=== PATIENT | female | born 1945 | race Caucasian/White ===

== ENCOUNTER 2018-03-05 11:01 | Inpatient (IN) | payer MEDICARE, BC ==
--- NOTE | 2018-03-05 12:10 | ED ---
Adult Trauma - HPI Summary HPI Summary: Patient presents with fall last night while getting out of the bathtub. Reports she slipped and fell forward (simply mechanical - no dizziness, chest pain, weakness, etc). With nothing to grab, her fall was broken by her face and her left hand. She has swelling and bruising about the bridge of her nose and medial orbital regions with bruising. She had epistaxis last night she controlled with pressure. She denies change in vision or pain with ocular movement she is able to breathe through her nose. Denies pain with jaw depression however she is currently in a cervical collar she is not able to fully depress her mandible. She denies loss of consciousness, nausea, vomiting , photophobia, ringing in her ears, numbness tingling or weakness. She does report pain in her neck and a "cracking". She also reports some throat pain. She reports she has a history of degenerative disc disease in her cervical spine which is basically arty fused together. She does not take any anticoagulant medication however she does take Aleve routinely for her arthritis pain. Denies issues with bleeding or clotting. She does have some pain in her chest along her sternal area from her fall. Denies shortness of breath. - History of Current Complaint Chief Complaint: EDBackInjuryPain Stated Complaint: FELL - BACK PAIN Time Seen by Provider: 03/05/18 11:27 Hx Obtained From: Patient, Family/Senior Project Leader/Team Lead Pain Intensity: 8 - Allergy/Home Medications Allergies/Adverse Reactions: Allergies Allergy/AdvReac Type Severity Reaction Status Date / Time No Known Allergies Allergy Verified 03/05/18 11:04 Home Medications: Home Medications Atenolol TAB* [Tenormin TAB* 25 MG] 25 mg PO DAILY 03/05/18 [History Confirmed 03/05/18] Cholecalciferol TAB* [Vitamin D TAB*] 800 unit PO DAILY 03/05/18 [History Confirmed 03/05/18] Naproxen TAB* [Naprosyn 250 mg TAB*] 250 - 500 mg PO DAILY PRN 03/05/18 [ History Confirmed 03/05/18] PMH/Surg Hx/FS Hx/Imm Hx Previously Healthy: Yes Endocrine/Hematology History: Reports: 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 - steroids many times Cardiovascular History: Reports: Other Cardiovascular Problems/Disorders - tachycardia - takes beta marley Musculoskeletal History: Reports: Hx Arthritis - hypertrophic arthritis Sensory History: Reports: Hx Contacts or Glasses Opthamlomology History: Reports: Hx Contacts or Glasses Infectious Disease History: No Infectious Disease History: Denies: Traveled Outside the [place] in Last 30 Days - Social History Alcohol Use: Rare Substance Use Type: Reports: None Smoking Status (MU): Never Smoked Tobacco Physical Exam Vital Signs On Initial Exam: Initial Vitals Temp Pulse Resp BP Pulse Ox 97.8 F 59 16 118/72 95 03/05/18 11:04 03/05/18 11:04 03/05/18 11:04 03/05/18 11:04 03/05/18 11:04 Diagnostics - Vital Signs Vital Signs Temp Pulse Resp BP Pulse Ox 03/05/18 11:04 97.8 F 59 16 118/72 95 - Laboratory Result Diagrams: 03/05/18 12:20 03/05/18 12:20 Lab Statement: Any lab studies that have been ordered have been reviewed, and results considered in the medical decision making process. Adult Trauma Course/Dx - Course Course Of Treatment: Ct cervical spine reveals multiple cervical fractures. Non -displaced nasal fx. spoke w/ dimopolous - admit here for surgery. SPoke w/ ... to admit - Diagnoses Provider Diagnoses: Multiple fractures of cervical spine, closed, Nasal fracture, Fall from standing, Contusion of left wrist, Facial contusion Discharge - Sign-Out/Discharge Documenting (check all that apply): Discharge/Admit/Transfer - Discharge Plan Condition: Stable Disposition: ADMITTED TO [facility] - Billing Disposition and Condition Condition: STABLE [place] [place]
[2018-03-05 13:19] LABS: ABS Basophils 0 10^3/ul (0-0.2); ABS Eosinophils 0.1 10^3/ul (0-0.6); ABS Lymphocytes 1.7 10^3/ul (1.0-4.8); ABS Monocytes 0.8 10^3/ul (0-0.8); ABS Neutrophils 7.1 10^3/ul (1.5-7.7); ABS Nucleated RBC 0 10^3/ul; Eosinophil % 1.4 % (0-6); Hematocrit 46 % (35-47); Hemoglobin 15.8 g/dl (12.0-16.0); Mean Corpuscular HGB Conc 34 g/dl (31-36); Mean Corpuscular Hemoglobin 34 pg (27-31); Mean Corpuscular Volume 100 fL (80-97); Mean Platelet Volume 8.9 um3 (7.4-10.4); Nucleated Red Blood Cells % 0.1; Platelet Count 274 10^3/ul (150-450); Red Blood Count 4.62 10^6/ul (4.0-5.4); Red Cell Distribution Width 12 % (10.5-15); White Blood Count 9.8 10^3/ul (3.5-10.8)
[2018-03-05 13:29] LABS: INR 0.89 (0.77-1.02)
[2018-03-05 13:35] LABS: EGFR Non-African American 73.7 (>60)
[2018-03-05] MEDS ORDERED: Iohexol 300* (CONTRAST) 10 ML SDV IV ONE (13:39)
--- NOTE | 2018-03-05 14:20 | RAD ---
HISTORY: Fall, head trauma COMPARISONS: None TECHNIQUE: Multiple contiguous axial CT scans were obtained of the head without intravenous contrast. FINDINGS: HEMORRHAGE/INFARCT: There is no hemorrhage or acute infarct. MASSES/SHIFT: There is no mass or shift. EXTRA-AXIAL SPACES: There are no extra-axial fluid collections. SULCI AND VENTRICLES: The sulci and ventricles are normal in size and position for the patient's stated age. CEREBRUM: There are no focal parenchymal abnormalities. BRAINSTEM: There are no focal parenchymal abnormalities. CEREBELLUM: There are no focal parenchymal abnormalities. VESSELS: The vessels are grossly normal. PARANASAL SINUSES: The paranasal sinuses are clear. ORBITS: The orbits are unremarkable. BONES AND SOFT TISSUE: No bone or soft tissue abnormalities are noted. OTHER: None IMPRESSION: NO ACUTE INTRACRANIAL PATHOLOGY.
--- NOTE | 2018-03-05 14:25 | RAD ---
HISTORY: Fall, head injury, neck pain COMPARISONS: None TECHNIQUE: Multiple contiguous axial CT scans were obtained of the cervical spine without intravenous contrast, with coronal and sagittal multiplanar reformations. FINDINGS: BRAIN: The visualized brain is unremarkable CENTRAL CANAL: Evaluation of the central canal is limited on CT technique; however, there is no obvious canalicular mass or epidural hemorrhage. ALIGNMENT: The alignment is normal, without subluxation or dislocation. VERTEBRAL BODIES: There is anterior fusion across the cervical spine from C2 through T1 with continuous bridging anterolateral marginal osteophytes. There is a fracture through the anterior fusion mass and the superior vertebral body of C6 extending into the lateral masses bilaterally involving 3 columns. There is mild diastasis of the fracture line. There is no subluxation. There is diffuse osteopenia. JOINTS: There is diffuse facet osteoarthritis. There is no subluxation. MUSCULATURE: Unremarkable INTERVERTEBRAL DISCS: There is diffuse loss of intervertebral disc height. AXIAL IMAGES: C2-C3: There is no osseous neural foraminal narrowing or central canal stenosis. C3-C4: There is a lateral uncovertebral hypertrophy. There is moderate bilateral neural foraminal area. There is mild narrowing of the central canal. C4-C5: There is bilateral vertebral and facet hypertrophy. There is moderate bilateral neural foraminal narrowing. There is no significant central canal stenosis. C5-C6: There is mild bilateral neural foraminal narrowing. There is mild narrowing of the central canal. C6-C7: There is no osseous neural foraminal narrowing or central canal stenosis. C7-T1: There is marginal osteophyte formation at the neural foramina. There is severe bilateral neuroforaminal narrowing. There is no osseous central canal stenosis. SOFT TISSUES: The visualized soft tissues of the neck are unremarkable. The prevertebral fat stripe is preserved. OTHER: None. IMPRESSION: 1. THERE IS A 3 COLUMN FRACTURE THROUGH C6, WITHOUT SUBLUXATION. PRELIMINARY FINDINGS WERE DISCUSSED WITH SHERRELL GREWAL IN THE EMERGENCY DEPARTMENT AT APPROXIMATELY 2:20 PM ON MARCH 05, 2018. 2. OSTEOPENIA. 3. DEGENERATIVE DISC DISEASE AND OSTEOARTHRITIS. 4. THERE IS CONTINUOUS FUSION OF THE CERVICAL SPINE FROM MULTIPLE BRIDGING ANTEROLATERAL MARGINAL OSTEOPHYTES, SUGGESTIVE OF DIFFUSE IDIOPATHIC SKELETAL HYPEROSTOSIS.
--- NOTE | 2018-03-05 14:37 | RAD ---
INDICATION: Fall. Sternal pain. COMPARISON: None TECHNIQUE: Axial source images were obtained from the thoracic inlet to the hemidiaphragms. Coronal and sagittal reconstructed images were acquired. 80 mL Omnipaque 300 The visualized neck to include the thyroid appear normal. Chest wall: There are no acute abnormalities of the bony thorax or chest wall. The patient has a known C6 fracture identified on the concurrent CT cervical spine. There is no supraclavicular, infraclavicular, or axillary lymphadenopathy. Lungs : There are multiple right-sided pulmonary parenchymal nodules measuring up to 5 mm. The largest of these is in the right middle lobe and as the 5 mm nodule which may containing a developing central calcification. There for 5 additional nodules which are slightly smaller in size. A small pneumatocele in the right lung base. There is minor gravity dependent atelectasis. The pulmonary interstitium appears normal. There are no endobronchial lesions. Cardiomediastinal structures: The heart is normal in size. There is no pericardial effusion. There is no evidence of aortic aneurysm or dissection. The pulmonary vessels appear normal. There is no mediastinal or hilar adenopathy. The esophagus appears normal. Pleura : There are no pleural-based masses or effusions. Other: There are no acute or significant CT findings of the visualized upper abdomen. IMPRESSION: LOW SUSPICION RIGHT-SIDED PULMONARY PARENCHYMAL NODULES. SUGGEST FOLLOW-UP IN 6 MONTHS TO REASSESS. NO ACUTE CT CHEST FINDINGS.
--- NOTE | 2018-03-05 14:37 | RAD ---
HISTORY: Fall, cervical extension injury, thoracic pain COMPARISONS: CT of the cervical spine dated March 05, 2018 TECHNIQUE: Multiple contiguous axial CT scans were obtained of the thoracic spine without intravenous contrast, with coronal and sagittal multiplanar reformations. FINDINGS: SPINAL CANAL: Evaluation of the central canal is limited on CT technique; however, there is no obvious canalicular mass or epidural hemorrhage. ALIGNMENT: The alignment is normal. VERTEBRAL BODIES: There is diffuse osteopenia. There is continuous flowing anterolateral marginal osteophyte formation along the cervical and thoracic spine. As noted on the CT of the cervical spine, there is a fracture of C6. Elsewhere, there is no displaced fracture. JOINTS: There is osteoarthritis of the costovertebral articulations. There is no subluxation MUSCULATURE: Unremarkable INTERVERTEBRAL DISCS: There is diffuse loss of intervertebral disc height throughout the spine. AXIAL IMAGES: Axial images, there is moderate narrowing of the central canal at T10-T11. SOFT TISSUES: The visualized soft tissues of the chest and abdomen are unremarkable. OTHER: None IMPRESSION: 1. NOTED ON THE CT OF THE CERVICAL SPINE, THERE IS A FRACTURE OF C6. 2. THERE IS CONTINUOUS, FLOWING, BRIDGING ANTEROLATERAL MARGINAL OSTEOPHYTES, SUGGESTIVE DIFFUSE IDIOPATHIC SKELETAL HYPEROSTOSIS. 3. THERE IS MODERATE NARROWING OF THE CENTRAL CANAL AT T10-T11.
--- NOTE | 2018-03-05 14:52 | RAD ---
INDICATION: Fall. Left wrist pain COMPARISON: None TECHNIQUE: AP, lateral, and oblique views were obtained. FINDINGS: There are no acute bony findings. There is advanced osteoarthritis about the first and second carpal carpal articulations. No other carpal abnormalities are seen. The radiocarpal joint is intact. Soft tissues are normal. IMPRESSION: ADVANCED OSTEOARTHRITIS FIRST AND SECOND CARPOMETACARPAL ARTICULATIONS. NO ACUTE FINDINGS.
--- NOTE | 2018-03-05 14:55 | RAD ---
Indication: Fall, head injury. CT of the facial bones was obtained in the axial plane. Coronal and sagittal reconstructed images were obtained. The frontal sinuses are clear without evidence of air-fluid levels. Soft tissue swelling is noted overlying the right frontal area. The orbits are intact without evidence of fracture. The skull base demonstrates no fracture. Maxillary sinuses, ethmoid air cells and sphenoid sinuses are clear without abnormal fluid. The heart palate including the pterygoid plates are intact. The mandible demonstrates no fracture. Mastoid air cells are well aerated. There is a nondisplaced fracture through the right nasal arch which is mildly comminuted. IMPRESSION: Mildly comminuted fracture through the right nasal arch.
--- NOTE | 2018-03-05 15:30 | RAD ---
HISTORY: Back pain, fall COMPARISONS: None TECHNIQUE: Multiple contiguous axial CT scans were obtained of the lumbar spine without intravenous contrast, with coronal and sagittal multiplanar reformations. FINDINGS: SPINAL CANAL: Evaluation of the central canal is limited on CT technique; however, there is no obvious canalicular mass or epidural hemorrhage. ALIGNMENT: There is mild levoscoliotic curvature of the spine. VERTEBRAL BODIES: There is diffuse osteopenia. Is multilevel anterolateral marginal osteophyte formation with bridging marginal osteophytes along the lower thoracic and upper lumbar spine. There is no displaced fracture. JOINTS: There is diffuse facet osteoarthritis. MUSCULATURE: Unremarkable INTERVERTEBRAL DISCS: There is diffuse loss of intervertebral disc height throughout the spine. AXIAL IMAGES: T11-T12: There is bilateral facet hypertrophy. There is moderate narrowing of the central canal. T12-L1: There is bilateral facet hypertrophy. There is moderate bilateral neuroforaminal narrowing. There is mild narrowing of the central canal. L1-L2: There is bilateral facet hypertrophy. There is moderate bilateral neural foraminal narrowing. There is mild narrowing of the central canal. L2-L3: There is bilateral facet hypertrophy. There is no significant neural foraminal narrowing or central canal stenosis. L3-L4: There is broad-based disc bulge with ligamentous and facet hypertrophy. There is marginal osteophyte formation at the neural foramina bilaterally. There is severe right and moderate left neural foraminal narrowing. There is severe narrowing of the central canal. L4-L5: There is a broad-based disc bulge with ligamentous and facet hypertrophy. There is marginal osteophyte formation at the neural foramina bilaterally. There is severe bilateral neural foraminal narrowing. There is moderate to severe narrowing of the central canal. L5-S1: There is bilateral facet hypertrophy. There is marginal osteophyte formation at the neural foramina bilaterally. There is severe bilateral neural foraminal narrowing. There is no osseous central canal stenosis. SOFT TISSUES: There is diverticulosis of the colon. There is atherosclerosis of the aorta. OTHER: None IMPRESSION: 1. OSTEOPENIA. 2. DEGENERATIVE DISC DISEASE AND OSTEOARTHRITIS. 3. THERE IS SEVERE NARROWING OF THE CENTRAL CANAL AT L3-L4 WITH MODERATE NARROWING L4-L5 AND T11-T12, AND MILD NARROWING AT T12-L1 AND L1-L2. 4. THERE IS MULTILEVEL NEURAL FORAMINAL NARROWING DESCRIBED ABOVE. 5. NO ACUTE OSSEOUS INJURY TO THE LUMBAR SPINE.
[2018-03-05] MEDS ORDERED: Acetaminophen TAB* 325 MG PO PRN (16:51)
[2018-03-05 17:20] LABS: Urine Appearance Clear; Urine Blood Negative (Negative); Urine Color Yellow; Urine Ketones Negative (Negative); Urine Protein Negative (Negative); Urine Specific Gravity > 1.060 (1.010-1.030); Urine Urobilinogen Negative (Negative)
[2018-03-05] MEDS ORDERED: oxyCODONE/Acetamin 5/325 MG* TAB PO PRN (21:31)
[2018-03-05] MEDS: Morphine VIAL* 4 MG/ML VIAL (1 ml vial) IV PRN (22:30)
--- NOTE | 2018-03-06 01:07 | HP ---
CC: Dr. Mariann Clark; Dr. Allen * HISTORY AND PHYSICAL: DATE OF ADMISSION: 03/05/18 PRIMARY CARE PROVIDER: Dr. Mariann Clark. ATTENDING PHYSICIAN: Dr. Kevin Olivares * (dictated by Preeti Reyes NP) . CHIEF COMPLAINT: Fall with neck pain and trauma to nose. HISTORY OF PRESENT ILLNESS: Ms. Johnson is a 72-year-old female with past medical history significant for history of pericarditis, diffuse idiopathic skeletal hyperostosis (DISH), and an unknown autoimmune disorder, who presented to the emergency room after falling while getting out of her bathtub last night. The patient states she has been in her usual state of health. She denies any fevers, chills, chest pain, shortness of breath, nausea, vomiting, diarrhea; urinary symptoms such as dysuria, urgency or frequency. The patient states that she has a lot of problems with her back and neck due to her DISH disease. The patient states that she slipped and fell last night, she denies any lightheadedness or dizziness. She reported discomfort in her neck and feeling as though her neck was "crunching when moving". She denies any loss of bowel or bladder. She denies any numbness, tingling, or muscle weakness. She has chronic pain in her back due to DISH disease. The patient also reports striking her face when she fell. She had significant epistaxis last night that resolved. She denies any loss of consciousness. She also reports a discomfort in her throat, but is able to swallow and nasal congestion. Due to her fall and the discomfort in her neck, she presented to the emergency room for further evaluation. While in the emergency room, the patient had a C-spine CT showing a C3-C6 fracture. The patient has an incidental finding of a right-sided lung nodule. She also had a maxillofacial CT showing a mild comminuted fracture of the right nasal arch. She also injured her left wrist in her fall, she has bruising to that area. She had an x-ray showing no fracture of the left wrist. She had a brain CT showing no acute intracranial pathology. She had an EKG without significant findings. She had labs that were unremarkable. The hospitalists were asked to evaluate the patient for admission. PAST MEDICAL HISTORY: 1. Pericarditis. 2. Diffuse idiopathic skeletal hyperostosis (DISH). 3. Unknown autoimmune disorder. PAST SURGICAL HISTORY: 1. Status post exploratory laparotomy. 2. Status post lysis of adhesions. 3. Status post knee surgery. 3. Status post tonsillectomy. HOME MEDICATIONS: Include: 1. Naproxen 250 to 500 mg oral daily as needed for pain. 2. Vitamin D 800 units oral daily. 3. Atenolol 25 mg oral daily. ALLERGIES: No known drug allergies. FAMILY HISTORY: The patient denies any family history of coronary artery disease, diabetes. Her father had a history of prostate cancer. SOCIAL HISTORY: The patient denies tobacco or recreational drug use. She rarely drinks alcohol. The patient's , Alcides Johnson, will be her surrogate decision maker in the event she is unable to make decisions for herself. REVIEW OF SYSTEMS: I performed a 14-point review of systems. All the pertinent positives and negatives are mentioned in the history of present illness. The remaining review of systems are negative. PHYSICAL EXAMINATION GENERAL APPEARANCE: The patient is alert, pleasant and appears to be in no acute distress. VITAL SIGNS: Temperature 97.8, heart rate 59, respiratory rate 16, O2 sat 95% on room air, blood pressure 118/72. HEENT: Normocephalic, atraumatic. Pupils are equal and reactive to light. Extraocular movements are intact. Swelling at the upper bridge of the nose. RESPIRATORY: There is no accessory muscle use. The lungs are clear to auscultation bilaterally. CARDIOVASCULAR: Regular rate and rhythm. S1 and S2 present. There are no murmurs, rubs, or gallops heard. ABDOMEN: Soft, nontender, and nondistended. There are bowel sounds present x4. EXTREMITIES: There is no lower extremity edema. DP and PT pulses are 2+ and symmetric. There is tenderness to palpation of the left proximal thumb and wrist. MUSCULOSKELETAL: There is no clubbing or cyanosis noted. The patient exhibits good strength in all extremities. NEUROLOGICAL: The patient is alert and oriented x4. Cranial nerves II through XII are grossly intact. PSYCHOLOGICAL: The patient is calm and cooperative. SKIN: The patient has ecchymosis to both eyes and the bridge of her nose. Additionally, she has ecchymosis to her left proximal thumb and at her wrist. DIAGNOSTIC STUDIES/LABORATORY DATA: Sodium 138, potassium 4.3, chloride 102, CO2 28, BUN 14, creatinine 0.77, glucose 154. White blood cell count 9.8, hemoglobin 15.8, hematocrit 46, platelet count 274. EKG shows a sinus bradycardia, rate of 52. There are no acute signs of ischemia and no previous EKGs for comparison. Brain CT from today. Radiologist's impression: No acute intracranial pathology. Cervical spine CT from today. Radiologist's impression: There is a 3-column fracture through C6 without subluxation. Osteopenia. Degenerative disk disease and osteoarthritis. There is continuous fusion of the cervical spine from multiple bridging anterolateral marginal osteophytes, suggestive of diffuse idiopathic skeletal hyperostosis. Chest CT from today. Radiologist's impression: Low suspicion right-sided pulmonary parenchymal nodules. Suggest followup in 6 months to reassess. No acute CT chest findings. Thoracic spine CT from today. Radiologist's impression: As noted on the CT of the cervical spine, there is a fracture of C6. There are continuous flowing bridging anterolateral marginal osteophytes, suggest diffuse idiopathic skeletal hyperostosis. There is moderate narrowing of the central canal at T10- T11. Maxillofacial CT from today. Radiologist's impression: Mildly comminuted fracture through the right nasal arch. Left wrist x-ray from today. Radiologist's impression: Advanced osteoarthritic first and second carpometacarpal articulations. No acute findings. Lumbar spine CT from today. Radiologist's impression: Osteopenia. Degenerative disk disease and osteoarthritis. There is severe narrowing of the central canal at L3-L4 with moderate narrowing at L4-L5 and T11-T12 and mild narrowing at T12-L1 and L1-L2. There is multilevel neural foraminal narrowing as described above. No acute osseous injury of the lumbar spine. IMPRESSION: Ms. Johnson is a 72-year-old female with past medical history significant for diffuse idiopathic skeletal hyperostosis, an unknown autoimmune disorder, and pericarditis, who presented to the emergency room after falling last evening and was found to have a C3-C6 cervical spine fracture. She will be admitted as an inpatient. ASSESSMENT/PLAN: 1. Cervical fractures at C3-C6. The patient will be seen in consultation by Dr. Allen with Neurosurgery. She will have her head of bed no higher than 20 degrees and be placed on bedrest with spinal precautions. There is concern that the patient could possibly have an esophageal trauma from her injury. We will have her be n.p.o. until we can complete a radiological swallow eval. Once the patient can eat and she is able to eat until Saturday, she will be n.p.o. after midnight on Saturday for surgery on Saturday. The patient will have neuro checks. She will be provided with pain control. According to the RCRI, the patient has 0 points in placing her to class 1 risk and a 0.4% risk of a major cardiac event. She has a MET score greater than 4. At this time, I feel she does not need further cardiac workup and is medically optimized to proceed to surgery when Neurosurgery is ready. 2. Incidental finding of pulmonary nodules. The patient needs to have a followup chest CT in 6 months. 3. Diffuse idiopathic skeletal hyperostosis. The patient will have supportive care. 4. History of pericarditis. The patient will be continued on her home atenolol as she states that she has had difficulties with her heart rate since her history of pericarditis. 5. Fluids, electrolytes and nutrition. The patient will be n.p.o. She will have LR at 125 mL an hour. 6. Code status. Full code. 7. DVT prophylaxis. The patient is at high risk and will have SCDs. We will hold on subcu heparin leading up to surgery. 8. Disposition. Inpatient. TIME SPENT: Time for this admission was approximately 60 minutes, greater than half of that was spent with the patient and discussing medications, past medical history, the events leading up to her arrival today, and performing a physical examination. Case has been reviewed with the attending, Dr. Olivares, who agrees with the plan of care. Reviewed by DEL BIRCH 03/07/18 [id number]/[facility] #: [id number] ROSELINE
--- NOTE | 2018-03-06 03:50 | CONS ---
CONSULTATION NOTE: DATE OF CONSULT: 03/05/18 HISTORY OF PRESENT ILLNESS: The patient is a very pleasant 72-year-old female with history of arrhythmias, who had fallen last night while she was getting out of the bathtub. The patient reported that she slipped and fell forward and fell on her face and her left hand. The patient came to the emergency room because of neck pain. She denies loss of consciousness. I was requested to see the patient by ED physician regarding CT scan finding consistent with C6 fracture involving the superior vertebral body C6 and bilateral lateral masses. The patient has history and imaging findings consistent with DISH. The patient reports that she has no weakness, numbness, or tingling of extremities. She denies any urinary or GI incontinence. The patient was able to ambulate after the fall. 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 She is , lives with her who accompanied her at this visit. She was also diagnosed with major fracture. She reports that prior to this fall, she was diagnosed with ankylosed spine and had significant limitations in her neck mobility. She could hardly move her neck and she had to turn from side to side with her body. PAST MEDICAL HISTORY: 1. Autoimmune disease with steroids several times. 2. Tachycardia, on beta-marley. 3. Arthritis. PAST SURGICAL HISTORY: The patient has multiple procedures in the abdomen for adhesions as well as D and Cs for miscarriage. MEDICATIONS: The patient is on: 1. Tylenol. 2. Cholecalciferol. 3. Naproxen. ALLERGIES: No known drug allergies. SOCIAL HISTORY: Tobacco, negative. Alcohol, occasionally. Recreational drug use, negative. PHYSICAL EXAM: The patient is not in acute distress. She is on a [place] J collar. She is awake, alert, oriented x3. Her pupils are equal and reactive. Cranial nerves II through XII are grossly intact. Motor 4 to 5/5 in all extremities. Sensory is grossly intact to light touch. Deep tendon reflexes +1 bilaterally. No clonus. No Babinski. Teran's negative. Straight leg test negative in the seated position. The patient has no tenderness to palpation of thoracic or lumbar spine. No step-offs. DIAGNOSTIC STUDIES/LAB DATA: The patient had a CT scan of the brain that did not reveal any evidence of acute intracranial abnormality. The patient had a CT scan of the maxillofacial with right nasal arch fracture. The patient had a CT scan of the cervical spine revealing a C6 superior vertebral body fracture extending to bilateral lateral masses. The patient had a CT scan of the thoracic spine that revealed ankylosed spine with DISH changes with multiple stenosis and multiple areas of calcification of ligamentum flavum. The patient had a CT scan of the L spine that revealed multilevel degenerative disk disease but no evidence of fracture. The patient had an MRI of the cervical spine that revealed again increased STIR signal changes at C6 at the area of an old fracture, possibly stented at the interspinous ligament at that level. She has multiple areas of stenosis. ASSESSMENT: The patient is a very pleasant 72-year-old female with recent fall and CT scan and MRI findings consistent with C6 fracture. PLAN: The patient at this point has unstable cervical spine fracture. She is doing neurologically very well, but based on her imaging, and her history of DISH I think that surgical intervention for stabilization is the most appropriate treatment for her. We discussed nonoperative and operative treatment options as well as risks and benefits of its approach. The patient understands and would like to proceed with surgical intervention. We discussed about risks and benefits, all expectations, in addition possible complications of the procedure. Complications include but not limited to bleeding, infection , risk of injury to adjacent structures, coma, paralysis, , need for additional procedure, anesthesia risks, stroke, blindness, cancer, instability, hardware failure. The patient understands as well as her and they would like to proceed with surgical intervention. She also understands that her condition may not improve and in fact could get worse after the surgery and that she may need to have additional procedure in the future and operative plan may be modified according to intraoperative findings and condition. They also understand tat she may require ICU care postoperatively and that there is a very high one month and one year mortality rate in patient with ankylosed spine and spine fracture. At this point, the patient will be at bedrest with [place] J collar with strict spine precautions with head of the bed approximately 20 to 30 degrees in her natural comfortable position. The patient reports that she was not able to lie flat prior to this fall because of her stiff spine. Also, the patient has some complaints of sore throat. Because of the possibility of esophageal injury the patient will be n.p.o. and consider further imaging if needed after reevaluation of her images with Radiology. Greatly appreciate care. Will follow patient closely. Again, thank you very much for allowing us to participate in the care of this patient. Please do not hesitate to contact our office in case you have any further questions or concerns regarding the care of this patient. [id number]/[facility] #: [id number] ROSELINE
--- NOTE | 2018-03-06 07:43 | RAD ---
HISTORY: Neck pain, fall, cervical spine fracture COMPARISONS: CT dated March 05, 2018 TECHNIQUE: The following sequences were obtained of the cervical spine: Sagittal T1- and T2-weighted images, sagittal STIR images, axial T2 and gradient echo images. FINDINGS: BRAIN AND SPINAL CORD: The visualized spinal cord is normal in caliber, position, and signal intensity. The visualized portion of the brain is unremarkable. The cerebellar tonsils are normal in position. ALIGNMENT: The alignment is normal. VERTEBRAL BODIES: There is linear low T1 signal with high T2/STIR signal paralleling the superior endplate of C6 along the fracture line noted on the earlier CT examination. There is distraction of the fracture line is no longer evident. There is no subluxation. There is a hemangioma of T1. Again noted is continuous flowing anterolateral bridging marginal osteophyte formation along the cervical spine. JOINTS: There is diffuse uncovertebral and facet osteoarthritis. MUSCULATURE: Unremarkable INTERVERTEBRAL DISCS: There is diffuse loss of intervertebral disc height and T2 signal throughout the spine. AXIAL IMAGES: C2-C3: There is no disc herniation, spinal stenosis, or neuroforaminal narrowing. C3-C4: There is bilateral uncovertebral facet hypertrophy. There is moderate bilateral neural foraminal narrowing. There is no significant central canal stenosis. C4-C5: There is a broad-based disc osteophyte complex. There is mild bilateral neuroforaminal narrowing. There is no significant central canal stenosis. C5-C6: There is a mild broad-based disc osteophyte complex with bilateral uncovertebral hypertrophy. There is mild bilateral neural foraminal narrowing. There is mild narrowing of the central canal. C6-C7: There is no disc herniation, spinal stenosis, or neuroforaminal narrowing. C7-T1: There is a mild broad-based disc osteophyte complex, greater on the left than on the right. There is bilateral uncovertebral and facet hypertrophy. There is severe bilateral neural foraminal narrowing. There is mild narrowing of the central canal. SOFT TISSUES: There is mild edema along the interspinous ligament at C5-C6. There is disruption of the posterior longitudinal ligament at C5-C6. The ligamentum flavum is intact. There is mild prevertebral soft tissue edema at C5-C6, without extension to the posterior pharyngeal mucosa or the esophagus. OTHER: None. IMPRESSION: 1. AGAIN NOTED IS A FRACTURE PARALLELING THE SUPERIOR ENDPLATE OF C6. THE DISTRACTION NOTED ON THE PREVIOUS CT EXAMINATION HAS REDUCED. THERE IS DISRUPTION OF THE POSTERIOR LONGITUDINAL LIGAMENT AT THIS LEVEL. THE LIGAMENTUM FLAVUM IS INTACT. THERE IS MILD EDEMA OF THE INTERSPINOUS LIGAMENT AT THIS LEVEL. 2. THERE IS NO CORD EDEMA. THERE ARE NO EPIDURAL FLUID COLLECTIONS. 3. AGAIN NOTED IS FLOWING MULTILEVEL BRIDGING MARGINAL OSTEOPHYTE FORMATION. 4. DEGENERATIVE DISC DISEASE AND OSTEOARTHRITIS DESCRIBED ABOVE.
--- NOTE | 2018-03-06 08:21 | PN ---
Subjective Date of Service: 03/06/18 Interval History: Ms. Johnson reports sinus fullness and some pain with swallowing that she thinks may in part be related to having a dry throat. She also reports some hip pain related to being required to lay flat in bed. She denies other complaint including chest pain, SOB, nausea, or abdominal pain. Objective Active Medications: Acetaminophen (Tylenol Tab*) 650 mg PO Q4H PRN Atenolol (Tenormin Tab*) 25 mg PO DAILY DEEJAY Cholecalciferol (Vitamin D Tab*) 800 unit PO DAILY [facility] Lactated Ringer's (Lactated Ringers 1000 Ml Bag*) 1,000 mls @ 125 mls/hr IV PER RATE DEEJAY Morphine Sulfate (Morphine Vial*) 2 mg IV Q4H PRN Oxycodone/Acetaminophen (Percocet 5/325 Tab*) 1 tab PO Q4H PRN Vital Signs: Temp Pulse Resp BP Pulse Ox 98.3 F 62 16 149/61 96 03/06/18 04:02 03/06/18 04:02 03/06/18 04:02 03/06/18 04:02 03/06/18 04:02 Oxygen Devices in Use Now: None Appearance: Female lying in bed in NAD Eyes: No Scleral Icterus Ears/Nose/Mouth/Throat: Mucous Membranes Moist Neck: Trachea Midline Respiratory: Symmetrical Chest Expansion and Respiratory Effort, Clear to Auscultation Cardiovascular: NL Sounds; No Murmurs; No JVD, No Edema Abdominal: NL Sounds; No Tenderness; No Distention Lymphatic: No Cervical Adenopathy Extremities: No Edema Skin: - - Ecchymosis and swelling about both eyes and nose Neurological: Alert and Oriented x 3, NL Muscle Strength and Tone Result Diagrams: 03/05/18 12:20 03/05/18 12:20 Assess/Plan/Problems-Billing Assessment: Ms. Johnson is a 72 yo female with PMH of diffuse idiopathic skeletal hyperostosis and unspecificied autoimmune disorder who was admitted on03/05/18 with C6 cervical fracture after mechanical fall with plans for operative intervention on 03/07/18. - Patient Problems (1) Cervical spine fracture Comment: - C6 fracture with plan for operative intervention with Dr. Garduno on . - Bedrest. Neuro checks. - Pain meds prn. (2) Dysphagia Comment: - Report of some difficulty swallowing. - Plan for swallow eval with speech therapy before resuming diet given trauma. (3) Tachycardia Comment: - Patient reports problems with her heart rate since a bout of pericarditis. - Continue home atenolol. (4) Pulmonary nodule Comment: - Follow up outpatient. (5) DVT prophylaxis Comment: - SCDs. (6) Full code status Comment: Status and Disposition: Inpatient. Anticipate discharge to home when medically stable.
[2018-03-06] MEDS: Atenolol TAB* 25 MG PO SCH (08:36)
[2018-03-06] MEDS: Cholecalciferol TAB* 400 UNIT PO SCH (08:36)
[2018-03-06] MEDS ORDERED: traMADol TAB* 50 MG PO PRN (08:44)
[2018-03-06] MEDS ORDERED: Perflutren Lipid Microsphere* 3 ML VIAL ONE (14:59)
--- NOTE | 2018-03-06 16:20 | ECHO ---
Patient: JOSH DESIR [facility] Rec#: [id number] : 1945 Date: 03/06/2018 Age: 72y Height: 165.1 cm / 65.0 in Weight: 92.99 kg / 204.9 lbs Sex: F BSA: 2 Room#: 338 Admit Date#: 03/05/2018 Type: Inpatient Referring: Preeti Mohamud NP Reading: Nick Keyes MD Fitness Consultant: Preeti Alvarez RDCS CC: Mariann Clark MD Transthoracic Echocardiogram Indication: HTN, history of pericarditis. BP: 153/68 HR: 62 Rhythm: NSR Findings History: Pericarditis 1989, difuse idiopathic skeletal hyperstosis (DISH). Unable to obtain suprasternal notch imaging due to presence of C-spine collar. Technical Comments: The study is technically difficult. The study is technically limited due to patient body habitus. Completed at 1540. Left Ventricle: The left ventricular chamber size is normal. Mild concentric left ventricular hypertrophy is observed. Global left ventricular wall motion and contractility are within normal limits. There is normal left ventricular systolic function. The estimated ejection fraction is 55-60%. Abnormal left ventricular diastolic filling is observed, consistent with impaired relaxation. Left Atrium: The left atrial chamber size is normal. Right Ventricle: Moderator Band present. The right ventricular cavity size is normal. The right ventricular global systolic function is normal. Right Atrium: The right atrium is moderately dilated. Aortic Valve: The aortic valve is trileaflet. There is no evidence of aortic valve thickening. There is no evidence of aortic regurgitation. There is no evidence of aortic stenosis. Mitral Valve: The mitral valve leaflets are mildly thickened. There is a trace of mitral regurgitation. Tricuspid Valve: The tricuspid valve leaflets are normal. There is trace tricuspid regurgitation. The right ventricular systolic pressure is estimated at 24 mmHg. No pulmonary hypertension is noted. Pulmonic Valve: The pulmonic valve appears normal. There is no evidence of pulmonic regurgitation. There is no pulmonic stenosis. Pericardium: There is no significant pericardial effusion. A pericardial fat pad is visualized. Aorta: There is no dilatation of the ascending aorta. The aortic arch is not well visualized. The aortic root is normal in size. Pulmonary Artery: The main pulmonary artery is not well visualized. Venous: The venous system is not well visualized. The inferior vena cava appears normal in size. There is an approximate 50% respiratory change in the inferior vena cava dimension. Contrast: Definity was used to optimize study. 3 mL of diluted Definity was utilized. Intravenous contrast was used to enhance endocardial border definition. Conclusions There is normal left ventricular systolic function. The estimated ejection fraction is 55-60%. Global left ventricular wall motion and contractility are within normal limits. The left ventricular chamber size is normal. Mild concentric left ventricular hypertrophy is observed. Abnormal left ventricular diastolic filling is observed, consistent with impaired relaxation. The right atrium is moderately dilated. Functionally benign heart valves. There is no prior echocardiogram available to compare with at this time. Measurements Name Value Normal Range RVIDd (AP) 2D 2.5 cm (0.9 - 2.6) RAd ISD 4CH 5.6 cm (3.4 - 4.9) RA (A4C)W 3.9 cm (2.9 - 4.6) IVSd (2D) 1.2 cm (0.6 - 1) LVPWd (2D) 1.2 cm (0.6 - 1) LVIDd (2D) 4.2 cm (3.6 - 5.4) LVIDs (2D) 3.1 cm - LV FS (2D) 26 % (25 - 45) Aortic Annulus 1.9 cm (1.4 - 2.6) Ao root diameter (2D) 3 cm (2.1 - 3.5) Ascending Ao 2.8 cm (2.1 - 3.4) LA dimension (AP) 2D 3.6 cm (2.3 - 3.8) LAd ISD 4CH 4.9 cm (2.9 - 5.3) LA ISD 4CH W 4.3 cm (2.5 - 4.5) Name Value Normal Range LA ESV SP 4CH (A/L) 51 ml - LA ESV SP 2CH (A/L) 71 ml - LA ESV BP (A/L) 69 ml - LA ESV BP (A/L) index 34 ml/m2 - LA ESV SP 4CH (MOD) 39 ml - LA ESV SP 2CH (MOD) 64 ml - Name Value Normal Range MV E-wave Vmax 0.86 m/sec - MV deceleration time 208.7 msec - MV A-wave Vmax 1.15 m/sec - MV E:A ratio 0.75 ratio - LV septal e' Vmax 0.07 m/sec - LV lateral e' Vmax 0.07 m/sec - LV E:e' septal ratio 12.29 ratio - LV E:e' lateral ratio 12.29 ratio - Name Value Normal Range AV Vmax 1.4 m/sec - AV VTI 30.8 cm - AV peak gradient 8.39 mmHg - AV mean gradient 4.82 mmHg - LVOT Vmax 0.99 m/sec - LVOT VTI 21.35 cm - LVOT peak gradient 3.93 mmHg - LVOT mean gradient 1.8 mmHg - Name Value Normal Range TR Vmax 2.3 m/sec - TR peak gradient 21 mmHg - RAP 3 mmHg - RVSP 24 mmHg - IVC diameter 1.9 cm - Name Value Normal Range PV Vmax 1.2 m/sec - PV peak gradient 5.37 mmHg -
[2018-03-06] MEDS: Morphine VIAL* 4 MG/ML VIAL (1 ml vial) IV PRN ×2 (17:52→22:04)
--- NOTE | 2018-03-07 00:02 | PN ---
Progress Note - Progress Note Date of Service: 03/06/18 SOAP: Subjective: []Patient seen earlier today No events ON. On MJ collar. NPO. Swallowing, throat pain improved. Objective: []AAOx3 SUZIE, CN II-XII grossly intact Motor 4-5/5 all extremities Sensory grossly intact to light touch. Assessment: []72 yof C6 fracture, unstable cervical fracture, DISH, Nasal fracture. Plan: []Monitor VS, Neurochecks Maintain MJ collar OR in am if no medical condraindications. NPO Discussed in extend with patient and her . Appreciate IM care. Kim Allen MD
[2018-03-07] MEDS ORDERED: LORazepam INJ* 2 MG/ML 1 ML VIAL IV ONE (00:03)
[2018-03-07] MEDS ORDERED: LORazepam INJ* 2 MG/ML 1 ML VIAL ONE (00:07)
[2018-03-07] MEDS: Morphine VIAL* 4 MG/ML VIAL (1 ml vial) IV PRN ×2 (01:40→05:27)
[2018-03-07] MEDS ORDERED: Famotidine IV* 10 MG/ML 2 ML (20 mg) IV ONE (06:00)
[2018-03-07] MEDS: Atenolol TAB* 25 MG PO SCH (08:11)
[2018-03-07] MEDS ORDERED: Bacitracin IV* 50,000 UNITS INJ ONE ×3 (08:11→15:44)
[2018-03-07] MEDS ORDERED: Thrombin 5,000 UNITS* 1 APPLIC KIT - topical use - TOPICAL ONE (08:11)
[2018-03-07] MEDS ORDERED: Lidocaine 1% MPF wEPI 200,000* 30 ML SDV ONE (08:11)
[2018-03-07] MEDS ORDERED: fentaNYL* 50 MCG/ML 2 ML VIAL (100 MCG VIAL) ONE ×5 (08:49→16:08)
[2018-03-07] MEDS ORDERED: Midazolam* 1 MG/ML 10 ML VIAL (10 MG) ONE (08:49)
[2018-03-07] MEDS ORDERED: Rocuronium* 10 MG/ML VIAL ONE (08:51)
[2018-03-07] MEDS ORDERED: Lidocaine 4% TOPICAL* 50 ML TOP.SOLN ONE (08:54)
[2018-03-07] MEDS ORDERED: ceFAZolin 2 GM PREMIX (*) 2 GM/50 ML BAG IVPB ONE ×2 (09:08→12:22)
[2018-03-07] MEDS: Cholecalciferol TAB* 400 UNIT PO SCH (10:13)
[2018-03-07] MEDS ORDERED: Propofol* 10 MG/ML 20 ML BTL IV PUSH ONE ×5 (12:52→15:24)
[2018-03-07] MEDS ORDERED: Succinylcholine* 20 MG/ML 10 ML VIAL ONE (12:53)
[2018-03-07] MEDS ORDERED: DiMENhydriNATE IV* 50 MG/ML VIAL ONE (12:53)
[2018-03-07] MEDS ORDERED: Dexamethasone IV* 4 MG/ML 1 ML (4 MG) ONE (12:53)
[2018-03-07] MEDS ORDERED: Lidocaine 2% PF * 5 ML VIAL ONE (12:53)
[2018-03-07] MEDS ORDERED: Glycopyrrolate IV* 0.2 MG/ML 1 ML VIAL ONE (13:19)
[2018-03-07] MEDS ORDERED: EPHEDrine (Pressors)* 50 MG/ML VIAL ONE (13:19)
[2018-03-07] MEDS ORDERED: Phenylephrine INJ* 10 MG/ML 1 ML VIAL (10 MG) ONE (13:19)
[2018-03-07] MEDS ORDERED: Ondansetron INJ* 2 MG/ML VIAL IV ONE (16:02)
[2018-03-07] MEDS ORDERED: HYDROmorphone INJ* 1 MG/ML CARPUJECT SYRINGE ONE (16:04)
--- NOTE | 2018-03-07 16:18 | RAD ---
INDICATION: C2-T2 fusion COMPARISON: None FINDINGS: 11 minutes and 37 seconds of fluoroscopy were provided for the neurosurgical department. Fluoroscopic spot imaging of the neck were obtained for operative control . CPT II Codes: G9500 (fluoro time doc)
--- NOTE | 2018-03-07 16:22 | RAD ---
INDICATION: C2-T2 posterior fusion. C-arm images COMPARISON: MRI cervical spine March 05, 2018 FINDINGS: 86.8 seconds of fluoroscopy were provided for the neurosurgical department. Fluoroscopic spot imaging of the cervical spine were obtained for operative control. Final images demonstrate posterior cervical fusion which reportedly extends to C2. CPT II Codes: G9500 (fluoro time doc)
[2018-03-07] MEDS ORDERED: Propofol* 100 ML ONE (17:50)
--- NOTE | 2018-03-07 18:06 | CONSULT ---
Consult Consult: Consultation Note Critical Care Requesting Physician: Dr Butt Reason for consult: vent management Limitations in history/physical: patient intubated/sedated post op Date of consult: 03/07/2018 HPI: 72y F with history of tachycardia, diffuse idiopathic skeletal hyperostosis and unspecificied autoimmune disorder, arthritis; admitted 03/05 after a mechanical fall at home. She had struck her head during the fall, noted to have eccymosis on her face around periorbital region. CT imaging demonstrated closed nasal fracture, periobital edema/eccymosis, and C6 vertebral fracture. Neurosurgery was consulted and patient was referred for surgical intervention. She is now post cervical spine repair from C3-T2 with nailing. EBL 200cc. Post op in ICU, remained intubated, with C-collar in place, ERAN drain+. she is post surgery and recovering from surgery. Patient was a difficult intubation requiring glidescope. ROS: limited due to patient being intubated PMHx: tachycardia, diffuse idiopathic skeletal hyperostosis and unspecificied autoimmune disorder, arthritis PSHx: ex-lap, lysis of adhesions, knee surgery Family History: Prostate Ca in father Social History: Alcohol-rare, Smoking-none, Drug use-none Allergies: Allergies Allergy/AdvReac Type Severity Reaction Status Date / Time No Known Allergies Allergy Verified 03/05/18 11:04 Home Medications: Atenolol TAB* [Tenormin TAB* 25 MG] 25 mg PO DAILY 03/05/18 [History Confirmed 03/05/18] Cholecalciferol TAB* [Vitamin D TAB*] 800 unit PO DAILY 03/05/18 [History Confirmed 03/05/18] Naproxen TAB* [Naprosyn 250 mg TAB*] 250 - 500 mg PO DAILY PRN 03/05/18 [ History Confirmed 03/05/18] Tele: NSR Vitals: Vital Signs Temp 98.3 F 03/07/18 21:58 Pulse 69 03/07/18 22:00 Resp 16 03/07/18 22:49 BP 137/66 03/07/18 17:50 Pulse Ox 93 03/07/18 22:00 Intake & Output 03/07/18 03/07/18 03/08/18 06:59 18:59 06:59 Intake Total 1000 50 Output Total 1450 800 200 Balance -450 -750 -200 Weight 222 lb 0.088 oz Intake: IV Fluids 1000 50 LR 1000 NS 50ML, Cefazolin 2G 50 Oral 0 Output: Urine 400 Thompson 1050 800 200 O2/Vent: CMV mode 50%, 450tv Infusions: LR, propofol Current Medications: Acetaminophen (Tylenol Tab*) 650 mg PO Q4H PRN PRN Reason: FEVER/PAIN Atenolol (Tenormin Tab*) 25 mg PO DAILY [facility] Last Admin: 03/07/18 08:11 Dose: 25 mg Cholecalciferol (Vitamin D Tab*) 800 unit PO DAILY [facility] Last Admin: 03/07/18 10:13 Dose: Not Given Fentanyl Citrate (Fentanyl*) 25 mcg IV SLOW PU Q4H PRN PRN Reason: PAIN Propofol (Diprivan*) 100 mls @ 12.084 mls/hr IV .(Initial Rate) DEEJAY; 20 MCG/KG/ MIN PRN Reason: Protocol Lactated Ringer's (Lactated Ringers 1000 Ml Bag*) 1,000 mls @ 100 mls/hr IV PER RATE DEEJAY Morphine Sulfate (Morphine Vial*) 2 mg IV Q4H PRN PRN Reason: PAIN - SEVERE Last Admin: 03/07/18 05:27 Dose: 2 mg Ondansetron HCl (Zofran 40 Mg Vial*) 4 mg IV Q6H PRN PRN Reason: NAUSEA/VOMITING Oxycodone/Acetaminophen (Percocet 5/325 Tab*) 1 tab PO Q4H PRN PRN Reason: PAIN Tramadol HCl (Ultram*) 50 mg PO Q6H PRN PRN Reason: PAIN Physical Exam: General: intubated, sedated Head: normocephalic, atraumatic HEENT: no pallor, no icterus, moist mucous membranes Neck: soft, supple, no jvd; c-collar in place; ERAN drain+ CVS: normal rate, regular, no murmur Resp: bilateral air entry, no rhales, no wheeze, no rhonchi, no acc muscle use Abdomen: soft, nondistended, bowel sounds present Ext: pulses+, warm, no edema Skin: intact, no breakdown, no dryness Neuro: intubated, sedated, c-collar in place Labs: Laboratory Results - last 24 hr 03/07/18 22:25 Patient Temperature Not Reportable ABG pH 7.40 ABG pH (Temp Correct) Not Reportable ABG pCO2 34 L ABG pCO2 (Temp Corrct Not Reportable ABG pO2 75 L ABG pO2 (Temp Correct Not Reportable ABG HCO3 22.4 ABG O2 Saturation 97.5 ABG Base Excess -3.1 L Respiration Rate Not Reportable O2 Delivery Device vent Ventilator Type Not Reportable Vent Mode Cpap FiO2 50 Inspiratory Time Not Reportable PEEP 5 Pressure Support 10 Pressure Control Not Reportable EPAP Not Reportable IPAP Not Reportable BiPAP Not Reportable Imaging: Assessment: 72y F with history of tachycardia, diffuse idiopathic skeletal hyperostosis and unspecificied autoimmune disorder, arthritis; admitted 03/05 after a mechanical fall at home. She had struck her head during the fall, noted to have eccymosis on her face around periorbital region. CT imaging demonstrated closed nasal fracture, periobital edema/eccymosis, and C6 vertebral fracture. Neurosurgery was consulted and patient was referred for surgical intervention. She is now post cervical spine repair from C3-T2 with nailing -Cervical spine fracture ; s/p Cervical repair 03/07 -Mechanical fall -Nasal Fracture -Periobital eccymosis Plan: Remains intubated; placed on CPAP trial but PO2 still low; not completely awake. likely some residual sedation. will cont propofol overnight and keep pain controlled. Plan for sedation weaning in AM and then CPAP trial for extubation. Cont Pain meds PRN Sedation for evening with propofol IVF LR infusion GI prophylaxis Hold heparin prophylaxis tonight Monitor ERAN outputs hemoglobin monitoring maintain C-collar overnight Wound care and surgical site checks Neurochecks Will monitor airway once extubated in AM ABG in AM arterial line maintained for hemodyn monitoring Central Line: no Arterial Line: yes Thompson Cathetor: yes Disposition: ICU; will continue to follow Code Status: full code Total Critical Care time is 40 minutes, excluding procedures/teaching Ronnie Canales MD Washer Cutter (Electronically Signed)
--- NOTE | 2018-03-07 18:48 | PN ---
Hospitalist Progress Note Date of Service: 03/07/18 Patient was in the OR this AM when rounding, remained in the OR throughout the day. Now intubated and sedated in the ICU, care transferred to Dr. Canales. See Dr. Canales's consultation for further details.
[2018-03-07] MEDS ORDERED: Ondansetron 40 MG VIAL* 2 MG/ML 20 ML VIAL IV PRN (18:58)
[2018-03-07] MEDS ORDERED: fentaNYL* 50 MCG/ML 2 ML VIAL (100 MCG VIAL) IV SLOW PU PRN (19:09)
--- NOTE | 2018-03-07 20:55 | RAD ---
INDICATION: Check tube placement COMPARISON: None TECHNIQUE: An AP portable view obtained at 2036 is submitted. FINDINGS: Bones/Soft Tissues: There is cervical-thoracic fusion which is imaged in part. The endotracheal tube is at the T2 level and can be advanced several centimeters Cardiomediastinal: The cardiomediastinal silhouette is normal. Lungs: There is mild bibasilar infiltrate or atelectasis. Pleura: There are no pleural effusions. Other: None IMPRESSION: THE ENDOTRACHEAL TUBE IS NEAR THE THORACIC INLET. THE TUBE CAN BE ADVANCED. THERE IS BIBASILAR ATELECTASIS OR INFILTRATE.
[2018-03-07] MEDS: Propofol* 100 ML IV SCH (23:14)
[2018-03-08] MEDS: Propofol* 100 ML IV SCH (02:34)
[2018-03-08 06:00] LABS: Hematocrit 39 % (35-47); Hemoglobin 13.2 g/dl (12.0-16.0); Mean Corpuscular HGB Conc 34 g/dl (31-36); Mean Corpuscular Hemoglobin 33 pg (27-31); Mean Corpuscular Volume 99 fL (80-97); Mean Platelet Volume 8.1 um3 (7.4-10.4); Platelet Count 226 10^3/ul (150-450); Red Blood Count 3.96 10^6/ul (4.0-5.4); Red Cell Distribution Width 12 % (10.5-15); White Blood Count 14.5 10^3/ul (3.5-10.8)
[2018-03-08 06:20] LABS: EGFR Non-African American 89.6 (>60)
[2018-03-08] MEDS ORDERED: hydrALAZINE IV* 20 MG/ML VIAL ONE ×2 (06:33→08:32)
[2018-03-08] MEDS: Morphine VIAL* 4 MG/ML VIAL (1 ml vial) IV PRN ×2 (07:27→22:02)
[2018-03-08] MEDS ORDERED: HYDROmorphone INJ* 2 MG/ML CARPUJECT SYRINGE IV SLOW PU PRN (10:03)
--- NOTE | 2018-03-08 10:06 | PN ---
Progress Note - Progress Note Date of Service: 03/08/18 Note: Progress Note - Critical Care 24 hour events: -intubated this morning, off sedation and awake/alert -follows commands, moves all ext -placed on CPAP, good weaning paremeters, NIF -50, cuff leak passed -extubated to AL Tele: NSR Vitals: Vital Signs Temp 98.4 F 03/08/18 07:33 Pulse 103 03/08/18 09:45 Resp 13 03/08/18 08:00 BP 141/66 03/08/18 09:35 Pulse Ox 98 03/08/18 10:02 Intake & Output 03/07/18 03/08/18 03/08/18 18:59 06:59 18:59 Intake Total 50 911 0 Output Total 800 1710 600 Balance -750 -799 -600 Weight 222 lb 0.088 oz 218 lb 4.122 oz Intake: IV Fluids 50 755 LR 755 NS 50ML, Cefazolin 2G 50 Medicated IV 156 propofol 156 Oral 0 Output: ERAN #1 60 Thompson 800 1650 600 O2/Vent: CMV - now on NC Infusions: LR Current Medications: Acetaminophen (Tylenol Tab*) 650 mg PO Q4H PRN PRN Reason: FEVER/PAIN Atenolol (Tenormin Tab*) 25 mg PO DAILY COUNT INCLUDES THE [facility] Last Admin: 03/07/18 08:11 Dose: 25 mg Cholecalciferol (Vitamin D Tab*) 800 unit PO DAILY COUNT INCLUDES THE [facility] Last Admin: 03/07/18 10:13 Dose: Not Given Hydromorphone HCl (Dilaudid Inj*) 1 mg IV SLOW PU Q4H PRN PRN Reason: PAIN - MODERATE TO SEVERE Hydromorphone HCl (Dilaudid Inj*) 0.5 mg IV SLOW PU Q4H PRN PRN Reason: PAIN - MILD TO MODERATE Lactated Ringer's (Lactated Ringers 1000 Ml Bag*) 1,000 mls @ 100 mls/hr IV PER RATE COUNT INCLUDES THE [facility] Last Admin: 03/08/18 08:35 Dose: 100 mls/hr Morphine Sulfate (Morphine Vial*) 2 mg IV Q4H PRN PRN Reason: PAIN - SEVERE Last Admin: 03/08/18 07:27 Dose: 2 mg Ondansetron HCl (Zofran 40 Mg Vial*) 4 mg IV Q6H PRN PRN Reason: NAUSEA/VOMITING Oxycodone/Acetaminophen (Percocet 5/325 Tab*) 1 tab PO Q4H PRN PRN Reason: PAIN Tramadol HCl (Ultram*) 50 mg PO Q6H PRN PRN Reason: PAIN Physical Exam: General: was intubated, awake alert, extubated on NC, no distress Head: normocephalic, atraumatic HEENT: no pallor, no icterus, moist mucous membranes Neck: soft, supple, no jvd; c-collar in place; ERAN drain+ CVS: normal rate, regular, no murmur Resp: bilateral air entry, no rhales, no wheeze, no rhonchi, no acc muscle use Abdomen: soft, nondistended, bowel sounds present Ext: pulses+, warm, no edema Skin: intact, no breakdown, no dryness Neuro: awake, alert, moves all ext, pain+; c-collar in place Labs: Laboratory Results - last 24 hr 03/07/18 03/08/18 03/08/18 22:25 05:45 05:45 WBC 14.5 H RBC 3.96 L Hgb 13.2 Hct 39 MCV 99 H MCH 33 H MCHC 34 RDW 12 Plt Count 226 MPV 8.1 Patient Temperature Not Reportable ABG pH 7.40 ABG pH (Temp Correct) Not Reportable ABG pCO2 34 L ABG pCO2 (Temp Corrct Not Reportable ABG pO2 75 L ABG pO2 (Temp Correct Not Reportable ABG HCO3 22.4 ABG O2 Saturation 97.5 ABG Base Excess -3.1 L Respiration Rate Not Reportable O2 Delivery Device vent Ventilator Type Not Reportable Vent Mode Cpap FiO2 50 Inspiratory Time Not Reportable PEEP 5 Pressure Support 10 Pressure Control Not Reportable EPAP Not Reportable IPAP Not Reportable BiPAP Not Reportable Sodium 138 L Potassium 3.9 Chloride 102 Carbon Dioxide 29 Anion Gap 7 BUN 11 Creatinine 0.65 Est GFR ( Amer) 115.2 Est GFR (Non-Af Amer) 89.6 BUN/Creatinine Ratio 16.9 Glucose 159 H Calcium 8.4 L Imaging: - Assessment: 72y F with history of tachycardia, diffuse idiopathic skeletal hyperostosis and unspecificied autoimmune disorder, arthritis; admitted 03/05 after a mechanical fall at home. She had struck her head during the fall, noted to have eccymosis on her face around periorbital region. CT imaging demonstrated closed nasal fracture, periobital edema/eccymosis, and C6 vertebral fracture. Neurosurgery was consulted and patient was referred for surgical intervention. She is now post cervical spine repair from C3-T2 with nailing -Cervical spine fracture ; s/p Cervical repair 03/07 -Mechanical fall -Nasal Fracture -Periobital eccymosis -hypertension Plan: -Exubated to AL now; doing well, no resp distress, sore throat+ -swallow eval later -keep upright 30deg as per Neurosurg. Cont Pain meds PRN IVF LR infusion GI prophylaxis Heparin proph as per neurosurg Monitor ERAN outputs hemoglobin monitoring maintain C-collar overnight Wound care and surgical site checks Neurochecks airway monitoring for stridor arterial line maintained for hemodyn monitoring Central Line: no Arterial Line: yes Thompson Cathetor: yes Disposition: ICU Code Status: full code Total Critical Care time is 30 minutes, excluding procedures/teaching Ronnie Canales MD Air Pollution Analyst (Electronically Signed)
[2018-03-08] MEDS: Cholecalciferol TAB* 400 UNIT PO SCH (10:23)
[2018-03-08] MEDS: HYDROmorphone INJ* 2 MG/ML CARPUJECT SYRINGE IV SLOW PU PRN ×3 (10:23→21:29)
[2018-03-08] MEDS: Atenolol TAB* 25 MG PO SCH (10:23)
[2018-03-08] MEDS ORDERED: hydrALAZINE IV* 20 MG/ML VIAL IV SLOW PU PRN (15:10)
[2018-03-08] MEDS: amLODIPine TAB* 5 MG PO SCH (16:01)
[2018-03-08] MEDS: Metoprolol Tartrate IV* 1 MG/ML 5 ML VIAL IV SCH ×2 (16:01→21:33)
--- NOTE | 2018-03-08 17:56 | OP ---
OPERATIVE REPORT: DATE OF SURGERY: 03/07/18. DATE OF : 45. SURGEON: Anh Allen MD. CO-SURGEON: Richie Wilburn MD. ANESTHESIA: General. PRE-OP DIAGNOSIS: C6 fracture, instability. POST-OP DIAGNOSIS: C6 fracture, instability. OPERATIVE PROCEDURE: The patient underwent posterior cervical arthrodesis and instrumentation with DBM putty from C2 to T2 with C2 pars screws, C3, C4, C5, C6 lateral mass screws and T1 and T2 pedicle screws. ESTIMATED BLOOD LOSS: 200 cc. COMPLICATIONS: None. SUMMARY: The patient is a very pleasant 72-year-old female with history of ankylosed spine, who was reported to have sustained a fall in the shower. The patient landed on face and hand first and she presented to the emergency room with severe neck pain. CT scan revealed a 3 column C6 fracture in the setting of ankylosed spine. The patient was considered to have a stable spinal injury and was offered the option of surgical intervention in the form of posterior cervical arthrodesis and stabilization and instrumentation. After explaining the nonoperative and operative treatment options as well as expectations, limitations, possible complications of procedure with complications include but not limited to bleeding, infection, risk of injury to the adjacent structures, coma, paralysis, , need for additional procedures, anesthesia risk, stroke , blindness, cancer, instability, hardware failure, adjacent level disease, proximal distal junctional failure or disease, pseudoarthrosis, need for additional procedures, anesthesia risk, stroke, blindness, cancer, anesthesia risk, the patient and her were agreed to proceed with surgery. Informed consent was obtained. The patient and her understood that her condition may not improve and in fact may get worse after the surgery and that she may need additional procedure in the future. The patient understood that the operative plan may be modified according to intraoperative findings and conditions. She understands there are possible vascular incidents and need for possible transfer. She also understood that she may require additional procedure in the future from an anterior or posterior approach. DESCRIPTION OF PROCEDURE: The patient was brought to the operating room and was placed under general anesthesia by the anesthesia team. She was was carefully positioned prone on the Otis table and all bony prominences were meticulously padded. Her cervical spine was maintained in alignment with the rest of her body and the patient was moved with spine precautions with careful positioning. Intraoperative monitoring did not reveal any changes. Her skin was prepped and draped in the sterile fashion and a midline incision was marked on the skin. The skin was infiltrated with local anesthetic and #10 surgical blade was used to incise the skin. The incision was carried down to the dorsal fascia with the use of Bovie cautery and self-retaining retractors were brought into the field. The spinous processes and lamina of C2 all the way down to T2 were carefully exposed after elevating platysma muscle with Bovie cautery and periosteal elevator. The C2 pars, the lateral masses of C3 through C7 as well as the spinous process of T1 and T2 were carefully exposed. Self- retaining retractors were advanced deeper into the field. Lateral mass screws were placed in C3, C4, C5 and C6 after drilling the entry points with high speed drill and drilling the trajectory of the screws with handheld drill. A 3.5 x 12 mm screw from [email or web address] instrumentation system were placed except the left C5 where a 3.5 x 10 mm screw was placed and the right C4, where a 4.0 x 10 mm screw was placed. Then, navigation star attachment was carefully attached on the spinous process of the T2 and intraoperative OArm imaging was obtained. Patient's data was transferred to the navigation platform and under direct visualization, stereotactic navigation and the AP fluoroscopic confirmation, the pedicles of T1 and T2 were cannulated. The trajectory of the pedicle screws was found to be having bony terry and 4.5 x 20 mm screws were placed on the pedicle of T1 while 4.5 x 30 mm screws were placed on the pedicles of T2. Then, attention was placed to insert the pars screws at C2, the entry point was marked with high speed drill and handheld drill was used to create the trajectory of the screw using anatomical landmarks and stereotactic navigation. Fluoroscopic imaging confirmed excellent placement of all hardware while second O-arm imaging confirmed excellent placement of all hardware. The wound was then copiously irrigated and two titanium rods were used to connect the screw heads and secured with screw head caps. After meticulous hemostasis was confirmed with copious irrigation, pulse lavage with the bacitracin solution was used and irrigated the wound. High speed drill was used to expose the bony surfaces to prepare for the arthrodesis and DBM putty was placed from C2 to T2. Through a separate stab wound incision, a #7 ERAN drain was introduced and secured in place with 2-0 Vicryl suture. Then, the self-retraining retractors were gently removed. After confirmation of the meticulous hemostasis and copious irrigation, the wound was closed by layers with 0 Vicryl sutures to approximate the dorsal fascia while the subcutaneous tissue was approximated with 2- 0 inverted interrupted Vicryl sutures. The skin was then approximated with interrupted running 0 Prolene suture and covered with a sterile dressing. At the end of the procedure, all counts were reported to be correct. The patient remained hemodynamically stable throughout the case, while the intraoperative electrophysiologic monitoring was stable throughout the case. At the end of the procedure, the patient was turned supine. She was kept intubated and was transferred to ICU in excellent condition where she was examined after weaning off the anesthesia and was found to be moving all extremities very well and following commands brisk. The case was done with 2 attending physicians because of the complexity of the case. [id number]/CPS #: [id number] ROSELINE
[2018-03-08] MEDS: Heparin VIAL(*) 5000 UNITS/ML VIAL (FIVE THOUSAND) SUBCUT SCH ×2 (21:37→22:00)
[2018-03-08] MEDS: Pantoprazole IV* 40 MG IV SCH (22:00)
--- NOTE | 2018-03-08 22:37 | PN ---
Progress Note - Progress Note Date of Service: 03/08/18 SOAP: Subjective: []Patient seen earlier today. Extubated this am. MJ collar. Feels neck pain is improved. NPO. Ruby Objective: []VSS, Afebrile. ERAN drain output noted. Wound soft, clean, dry. AAOx3 SUZIE, CN II-XII grossly intact Motor 4-5/5 all extremities Sensory grossly intact to light touch. Assessment: []72 yof C6 fracture, unstable cervical fracture, DISH, Nasal fracture. POD#1 Posterior C2-T2 instrumentation and arthrodesis. Plan: []Monitor VS, Neurochecks. Maintain MJ collar. Monitor wound, Daily dressing changes starting POD#2. Keep sutures until follow up visit in office. OOB in a chair. PT/ DC planning Consider ENT consult prior to starting PO. DVT prophylaxis with SQ heparin in am Ok to DC ruby Gray from NS standpoint. Appreciate ICU, IM care. Kim Allen MD
[2018-03-09] MEDS: Heparin VIAL(*) 5000 UNITS/ML VIAL (FIVE THOUSAND) SUBCUT SCH ×3 (05:21→21:19)
[2018-03-09] MEDS: Metoprolol Tartrate IV* 1 MG/ML 5 ML VIAL IV SCH ×4 (05:21→22:11)
[2018-03-09] MEDS: HYDROmorphone INJ* 2 MG/ML CARPUJECT SYRINGE IV SLOW PU PRN ×2 (07:21→15:18)
[2018-03-09] MEDS: Morphine VIAL* 4 MG/ML VIAL (1 ml vial) IV PRN (08:15)
--- NOTE | 2018-03-09 08:55 | PN ---
Progress Note - Progress Note Date of Service: 03/09/18 Note: for gastrograffin swallow study today by radiology before clearing to swallow, r /o esophageal injury from cervical fracture Ordered yesterday
--- NOTE | 2018-03-09 09:05 | RAD ---
HISTORY: History of cervical fusion, fracture, evaluate for pharyngeal injury, catheterization COMPARISONS: CT dated March 05, 2018 TECHNIQUE: A limited fluoroscopic evaluation of the pharynx and upper esophagus was performed using water-soluble contrast. Total fluoroscopy time is 0.6 minutes. FINDINGS: The patient is status post posterior spinal fusion, with lateral mass screws noted from C2 through the upper thoracic spine.. Again noted is a fracture through the C6 vertebral body, with mild distraction of the fracture fragments. This is similar to the previous CT examination. Oral contrast passes easily from the pleural cavity through the pharynx into the proximal esophagus. There is no appreciable extravasation or pooling. There is transient penetration to the laryngeal vestibule. No aspiration is noted on the current examination IMPRESSION: STATUS POST CERVICAL SPINE FRACTURE AND SPINAL FUSION. THERE IS NO APPRECIABLE EXTRAVASATION OF CONTRAST TO SUGGEST PENETRATING PHARYNGEAL MUCOSAL INJURY. CPT II Codes: G9500
[2018-03-09] MEDS: Atenolol TAB* 25 MG PO SCH (09:35)
[2018-03-09] MEDS: amLODIPine TAB* 5 MG PO SCH (09:35)
[2018-03-09] MEDS: Cholecalciferol TAB* 400 UNIT PO SCH (09:35)
--- NOTE | 2018-03-09 16:48 | PN ---
Subjective Date of Service: 03/09/18 Interval History: c/o neck and back pain, lower sternal pain with palpation. mild discomfort with swallowing. Denies difficulty breath. denies abd pain n/v/d. denies numbness or tingling to extremities. Family History: Unchanged from Admission Social History: Unchanged from Admission Past Medical History: Unchanged from Admission Objective Active Medications: Acetaminophen (Tylenol Tab*) 650 mg PO Q4H PRN PRN Reason: FEVER/PAIN Amlodipine Besylate (Norvasc Tab*) 10 mg PO DAILY [facility] Last Admin: 03/09/18 09:35 Dose: Not Given Atenolol (Tenormin Tab*) 25 mg PO DAILY [facility] Last Admin: 03/09/18 09:35 Dose: Not Given Cholecalciferol (Vitamin D Tab*) 800 unit PO DAILY [facility] Last Admin: 03/09/18 09:35 Dose: Not Given Heparin Sodium (Porcine) (Heparin Vial(*)) 5,000 units SUBCUT Q8HR [facility] Last Admin: 03/09/18 13:55 Dose: 5,000 units Hydralazine HCl (Apresoline Iv*) 5 mg IV SLOW PU Q4HR PRN PRN Reason: Systolic Bp Greater Than:160 Last Admin: 03/08/18 18:15 Dose: 5 mg Hydromorphone HCl (Dilaudid Inj*) 1 mg IV SLOW PU Q4H PRN PRN Reason: PAIN - MODERATE TO SEVERE Last Admin: 03/09/18 15:18 Dose: 1 mg Hydromorphone HCl (Dilaudid Inj*) 0.5 mg IV SLOW PU Q4H PRN PRN Reason: PAIN - MILD TO MODERATE Lactated Ringer's (Lactated Ringers 1000 Ml Bag*) 1,000 mls @ 100 mls/hr IV PER RATE [facility] Last Admin: 03/09/18 15:08 Dose: 100 mls/hr Metoprolol Tartrate (Lopressor Iv*) 2.5 mg IV Q6H [facility] Last Admin: 03/09/18 16:27 Dose: 2.5 mg Morphine Sulfate (Morphine Vial*) 2 mg IV Q4H PRN PRN Reason: PAIN - SEVERE Last Admin: 03/09/18 08:15 Dose: 2 mg Ondansetron HCl (Zofran 40 Mg Vial*) 4 mg IV Q6H PRN PRN Reason: NAUSEA/VOMITING Oxycodone/Acetaminophen (Percocet 5/325 Tab*) 1 tab PO Q4H PRN PRN Reason: PAIN Last Admin: 03/08/18 22:01 Dose: 1 tab Pantoprazole Sodium (Protonix Iv*) 40 mg IV BEDTIME DEEJAY Last Admin: 03/08/18 22:00 Dose: 40 mg Tramadol HCl (Ultram*) 50 mg PO Q6H PRN PRN Reason: PAIN Vital Signs - 8 hr 03/09/18 03/09/18 03/09/18 09:35 11:19 12:28 Temperature 97.0 F Pulse Rate 64 Respiratory 18 16 18 Rate Blood Pressure 124/44 (mmHg) O2 Sat by Pulse 98 Oximetry 03/09/18 03/09/18 03/09/18 15:18 15:23 16:42 Temperature Pulse Rate 72 Respiratory 18 16 18 Rate Blood Pressure 139/45 (mmHg) O2 Sat by Pulse 94 Oximetry Oxygen Devices in Use Now: Simple Face Mask Appearance: appears mildly uncomfortable, alert and oriented x 4 Eyes: No Scleral Icterus Ears/Nose/Mouth/Throat: Clear Oropharnyx, Mucous Membranes Moist Neck: NL Appearance and Movements; NL JVP, Trachea Midline, - - Mj collar in place. Respiratory: Symmetrical Chest Expansion and Respiratory Effort, Clear to Auscultation Cardiovascular: NL Sounds; No Murmurs; No JVD, RRR, No Edema Abdominal: NL Sounds; No Tenderness; No Distention Extremities: No Edema, No Clubbing, Cyanosis, - - radial pulses + 2 bilat Skin: No Rash or Ulcers, - - dressing intact to posterior neck, Neurological: Alert and Oriented x 3, - Nutrition: - - NPO- Result Diagrams: 03/08/18 05:45 03/08/18 05:45 Microbiology and Other Data: Microbiology 03/05/18 16:55 Urine Culture - Final Urine Assess/Plan/Problems-Billing Assessment: Ms. Johnson is a 72 yo female with PMH of diffuse idiopathic skeletal hyperostosis and unspecificied autoimmune disorder who was admitted on03/05/18 with C6 cervical fracture after mechanical fall with plans for operative intervention on 03/07/18. Operation completed 03/07/18, when to ICU post op extubated 03/08/2018. - Patient Problems (1) Cervical spine fracture Current Visit: Yes Status: Acute Code(s): S12.9XXA - FRACTURE OF NECK, UNSPECIFIED, INITIAL ENCOUNTER SNOMED Code(s): 144213483 Comment: - C6 fracture with plan for operative intervention with Dr. Garduno on . - s/p operative repair of C6 fx, posterior cervical arthrodesis and instrumentation with DBM putty from C2 to T2 with C2 pars screws, C3, C4, C5, C6 lateral mass screws and T1 and T2 pedicle screws. - MJ collar inplace, ERAN drain to left neck - Neuro checks. - keep HOB elevated 30 degrees - Pain meds prn. (2) Pulmonary nodule Current Visit: Yes Status: Acute Code(s): R91.1 - SOLITARY PULMONARY NODULE SNOMED Code(s): 641148606 Comment: - Follow up outpatient. (3) Dysphagia Current Visit: Yes Status: Acute Code(s): R13.10 - DYSPHAGIA, UNSPECIFIED SNOMED Code(s): 30964588 Comment: - Report of some difficulty swallowing. - Had esophgeal swallow study today- WNL, no pooling,aspiration, trauma - bedside swallow screen 03/09/18 - patient failed thin liquids - Plan for swallow eval with speech therapy before resuming diet (4) DVT prophylaxis Current Visit: Yes Status: Acute Code(s): AJC7453 - SNOMED Code(s): 112284102 Comment: - SCDs. -heparin sub Q (5) Full code status Current Visit: Yes Status: Acute Code(s): Z78.9 - OTHER SPECIFIED HEALTH STATUS SNOMED Code(s): 441000951 Comment: Status and Disposition: Inpatient. Anticipate discharge to home when medically stable.
--- NOTE | 2018-03-09 18:58 | PN ---
Progress Note - Progress Note Date of Service: 03/09/18 SOAP: Subjective: []On regular floor. No events ON. MJ collar. Feels neck pain, sore throat is improved. NPO. Thompson Objective: []VSS, Afebrile. ERAN drain output noted. Wound soft, clean, dry. AAOx3 SUZIE, CN II-XII grossly intact Motor 4-5/5 all extremities Sensory grossly intact to light touch Assessment: []72 yof C6 unstable cervical fracture, DISH, Nasal fracture. POD#2 Posterior C2 -T2 instrumentation and arthrodesis. Plan: []Monitor VS, Neurochecks. Maintain MJ collar. Monitor wound, Daily dressing changes starting POD#2. Keep sutures until follow up visit in office. OOB in a chair and ambulate with assistance. Fall precautions. PT/ DC planning Gastrografin study negative for esophageal injury. Nutrition consult when able to take po. DVT prophylaxis with SQ heparin. Cervical spine XR AP/Lateral in am Appreciate IM care. Kim Allen MD
[2018-03-09] MEDS: Dexamethasone IV* 4 MG/ML 1 ML (4 MG) IV SLOW PU SCH (21:12)
[2018-03-09] MEDS: Pantoprazole IV* 40 MG IV SCH (21:15)
[2018-03-10] MEDS: HYDROmorphone INJ* 2 MG/ML CARPUJECT SYRINGE IV SLOW PU PRN ×2 (00:05→05:51)
[2018-03-10] MEDS: Metoprolol Tartrate IV* 1 MG/ML 5 ML VIAL IV SCH ×2 (04:12→10:30)
[2018-03-10] MEDS: Dexamethasone IV* 4 MG/ML 1 ML (4 MG) IV SLOW PU SCH ×2 (05:53→14:14)
[2018-03-10] MEDS: Heparin VIAL(*) 5000 UNITS/ML VIAL (FIVE THOUSAND) SUBCUT SCH ×3 (05:55→22:39)
[2018-03-10] MEDS: amLODIPine TAB* 5 MG PO SCH (09:09)
[2018-03-10] MEDS: Cholecalciferol TAB* 400 UNIT PO SCH (09:10)
[2018-03-10] MEDS: Atenolol TAB* 25 MG PO SCH (09:10)
--- NOTE | 2018-03-10 11:13 | PN ---
Progress Note - Progress Note Date of Service: 03/10/18 SOAP: Subjective: []No events ON. MJ collar. Gastrografin study did not reveal evidence of esophageal injury. Thompson. Feels better today. Objective: []VSS, Afebrile. ERAN drain output noted: 30 cc. ERAN drain was removed. Catheter appeared to be intact.Patient tolerated the procedure well. Wound soft, clean, dry. AAOx3 SUZIE, CN II-XII grossly intact Motor 4-5/5 all extremities Sensory grossly intact to light touch Assessment: []72 yof C6 unstable cervical fracture, DISH, Nasal fracture. POD#3 Posterior C2 -T2 instrumentation and arthrodesis. Plan: []]Monitor VS, Neurochecks. Maintain MJ collar. Monitor wound, Daily dressing changes. OOB in a chair and ambulate with assistance. Fall precautions. PT/ DC planning Nutrition consult when able to take po. DVT prophylaxis with SQ heparin. Cervical spine XR AP/Lateral today Appreciate IM care. Kim Allen MD
[2018-03-10] MEDS: Morphine VIAL* 4 MG/ML VIAL (1 ml vial) IV PRN ×2 (12:11→22:37)
--- NOTE | 2018-03-10 16:55 | PN ---
Subjective Date of Service: 03/10/18 Interval History: reports that she is feeling better today. reports lower sternal pain with palpation, and mild neck pain. very concerned about becoming addicted to narcotic as she reports a history of difficulty weaning her narcotic in the past. Denies chest pain or shortness of breath. denies abd pain. denies numbness or tingling to arms or legs Family History: Unchanged from Admission Social History: Unchanged from Admission Past Medical History: Unchanged from Admission Objective Active Medications: Acetaminophen (Tylenol Tab*) 650 mg PO Q4H PRN PRN Reason: FEVER/PAIN Amlodipine Besylate (Norvasc Tab*) 10 mg PO DAILY [facility] Last Admin: 03/10/18 09:09 Dose: Not Given Atenolol (Tenormin Tab*) 25 mg PO DAILY [facility] Last Admin: 03/10/18 09:10 Dose: Not Given Cholecalciferol (Vitamin D Tab*) 800 unit PO DAILY [facility] Last Admin: 03/10/18 09:10 Dose: Not Given Heparin Sodium (Porcine) (Heparin Vial(*)) 5,000 units SUBCUT Q8HR [facility] Last Admin: 03/10/18 14:17 Dose: 5,000 units Hydralazine HCl (Apresoline Iv*) 5 mg IV SLOW PU Q4HR PRN PRN Reason: Systolic Bp Greater Than:160 Last Admin: 03/08/18 18:15 Dose: 5 mg Hydromorphone HCl (Dilaudid Inj*) 1 mg IV SLOW PU Q4H PRN PRN Reason: PAIN - MODERATE TO SEVERE Last Admin: 03/10/18 05:51 Dose: 1 mg Hydromorphone HCl (Dilaudid Inj*) 0.5 mg IV SLOW PU Q4H PRN PRN Reason: PAIN - MILD TO MODERATE Lactated Ringer's (Lactated Ringers 1000 Ml Bag*) 1,000 mls @ 100 mls/hr IV PER RATE [facility] Last Admin: 03/10/18 10:34 Dose: 100 mls/hr Morphine Sulfate (Morphine Vial*) 2 mg IV Q4H PRN PRN Reason: PAIN - SEVERE Last Admin: 03/10/18 12:11 Dose: 2 mg Omeprazole (Prilosec Cap*) 20 mg PO 0600 [facility] Ondansetron HCl (Zofran 40 Mg Vial*) 4 mg IV Q6H PRN PRN Reason: NAUSEA/VOMITING Oxycodone/Acetaminophen (Percocet 5/325 Tab*) 1 tab PO Q4H PRN PRN Reason: PAIN Last Admin: 03/08/18 22:01 Dose: 1 tab Tramadol HCl (Ultram*) 50 mg PO Q6H PRN PRN Reason: PAIN Vital Signs - 8 hr 03/10/18 03/10/18 03/10/18 09:10 10:14 12:11 Temperature 98.9 F Pulse Rate 73 Respiratory 16 18 18 Rate Blood Pressure 155/66 (mmHg) O2 Sat by Pulse 90 Oximetry 03/10/18 15:30 Temperature 97.9 F Pulse Rate 63 Respiratory 16 Rate Blood Pressure 142/58 (mmHg) O2 Sat by Pulse 98 Oximetry Oxygen Devices in Use Now: Simple Face Mask Appearance: elderly female , ecchymosis noted to bilat eyes, appears tired Eyes: No Scleral Icterus, - - bruising noted to bilat eyes Ears/Nose/Mouth/Throat: Clear Oropharnyx, Mucous Membranes Moist Neck: NL Appearance and Movements; NL JVP, Trachea Midline, - - MJ collar in place Respiratory: Symmetrical Chest Expansion and Respiratory Effort, Clear to Auscultation Cardiovascular: NL Sounds; No Murmurs; No JVD, RRR, No Edema Abdominal: NL Sounds; No Tenderness; No Distention Extremities: No Edema, No Clubbing, Cyanosis, - - radial and pedal pulses +2, full ROM to all 4 ext Skin: No Rash or Ulcers Neurological: Alert and Oriented x 3, NL Muscle Strength and Tone Nutrition: Taking PO's Result Diagrams: 03/08/18 05:45 03/08/18 05:45 Microbiology and Other Data: Microbiology 03/05/18 16:55 Urine Culture - Final Urine Assess/Plan/Problems-Billing Assessment: Ms. Johnson is a 72 yo female with PMH of diffuse idiopathic skeletal hyperostosis and unspecificied autoimmune disorder who was admitted on03/05/18 with C6 cervical fracture after mechanical fall with plans for operative intervention on 03/07/18. Operation completed 03/07/18, when to ICU post op extubated 03/08/2018. - Patient Problems (1) Cervical spine fracture Current Visit: Yes Status: Acute Code(s): S12.9XXA - FRACTURE OF NECK, UNSPECIFIED, INITIAL ENCOUNTER SNOMED Code(s): 788273318 Comment: - C6 fracture with plan for operative intervention with Dr. Garduno on . - s/p operative repair of C6 fx, posterior cervical arthrodesis and instrumentation with DBM putty from C2 to T2 with C2 pars screws, C3, C4, C5, C6 lateral mass screws and T1 and T2 pedicle screws. - MJ collar inplace, ERAN drain to left neck - Neuro checks. - keep HOB elevated 30 degrees - Pain meds prn. (2) Pulmonary nodule Current Visit: Yes Status: Acute Code(s): R91.1 - SOLITARY PULMONARY NODULE SNOMED Code(s): 309819180 Comment: - Follow up outpatient. (3) Dysphagia Current Visit: Yes Status: Acute Code(s): R13.10 - DYSPHAGIA, UNSPECIFIED SNOMED Code(s): 55916051 Comment: - Report of some difficulty swallowing. - Had esophgeal swallow study today- WNL, no pooling,aspiration, trauma - bedside swallow screen 03/09/18 - patient failed thin liquids - speech therapy evaluated started thin liquids and purred diet- must be sitting in the chair while eating (4) DVT prophylaxis Current Visit: Yes Status: Acute Code(s): TEQ7035 - SNOMED Code(s): 289318518 Comment: - SCDs. -heparin sub Q (5) Full code status Current Visit: Yes Status: Acute Code(s): Z78.9 - OTHER SPECIFIED HEALTH STATUS SNOMED Code(s): 209639625 Comment: Status and Disposition: Inpatient. Anticipate discharge to home when medically stable.
[2018-03-11 05:44] LABS: ABS Basophils 0 10^3/ul (0-0.2); ABS Eosinophils 0 10^3/ul (0-0.6); ABS Lymphocytes 1.2 10^3/ul (1.0-4.8); ABS Neutrophils 6.4 10^3/ul (1.5-7.7); ABS Nucleated RBC 0 10^3/ul; Eosinophil % 0 % (0-6); Hematocrit 35 % (35-47); Lymphocyte % 13.5 % (25-47); Mean Corpuscular HGB Conc 35 g/dl (31-36); Mean Corpuscular Hemoglobin 34 pg (27-31); Mean Corpuscular Volume 99 fL (80-97); Mean Platelet Volume 8.3 um3 (7.4-10.4); Nucleated Red Blood Cells % 0; Platelet Count 233 10^3/ul (150-450); Red Blood Count 3.51 10^6/ul (4.0-5.4); Red Cell Distribution Width 13 % (10.5-15); White Blood Count 8.6 10^3/ul (3.5-10.8)
[2018-03-11 05:58] LABS: EGFR Non-African American 113.4 (>60)
[2018-03-11] MEDS ORDERED: Omeprazole CAP* 20 MG PO SCH (06:00)
[2018-03-11] MEDS: Heparin VIAL(*) 5000 UNITS/ML VIAL (FIVE THOUSAND) SUBCUT SCH (06:14)
[2018-03-11] MEDS: Cholecalciferol TAB* 400 UNIT PO SCH (08:23)
[2018-03-11] MEDS: amLODIPine TAB* 5 MG PO SCH (08:23)
[2018-03-11] MEDS: Atenolol TAB* 25 MG PO SCH (08:33)
--- NOTE | 2018-03-11 10:55 | RAD ---
HISTORY: Postop COMPARISONS: CT dated March 05, 2013 VIEWS: 3, Frontal, lateral, and open-mouth odontoid views of the cervical spine. FINDINGS: The cervical spine is visualized from the skull base through T2. ALIGNMENT: The alignment is normal. VERTEBRAL BODIES: There is diffuse osteopenia. Again noted are continues bridging osteophytes of the anterior vertebral bodies. Again noted is a fracture with diastasis along the superior plate of C6. There has been interval fusion with lateral mass screws from C2 through C6 and pedicle screws at T1 and T2. There is no hardware failure or osteolysis. JOINTS: There is osteoarthritis of the facet joints. INTERVERTEBRAL DISCS: There is diffuse loss of intervertebral disc height. SOFT TISSUE: The prevertebral soft tissues are normal. OTHER: The skull base is normal. The lung apices are clear. IMPRESSION: 1. AGAIN NOTED IS A FRACTURE OF C6 WITH DIASTASIS OF THE FRACTURE LINE SIMILAR TO THE PREVIOUS CT EXAMINATION. 2. THERE IS BEEN INTERVAL POSTERIOR FUSION FROM C2 THROUGH T2. THERE IS NO HARDWARE FAILURE OR OSTEOLYSIS.
[2018-03-11 13:00] VITALS: BP 142/79
--- NOTE | 2018-03-11 13:56 | PN ---
Progress Note - Progress Note Date of Service: 03/11/18 SOAP: Subjective: [S/p C2-T2 posterior fusion, POD#4. Sitting up in bed since this morning. Complains of headache but otherwise feeling well. Pre-op RUE tingling improved. Started eating pureed diet yesterday, soft stool following. Is able to consume puree food without difficulty swallowing. Pain well controlled with current medications. Denies numbness, tingling, weakness and pain in the upper extremities.] Objective: [Vital Signs: Temp Pulse Resp BP Pulse Ox 98.0 F 59 17 142/79 99 03/11/18 11:38 03/11/18 11:38 03/11/18 11:38 03/11/18 11:38 03/11/18 11:38 General: Alert and oriented. No distress. Mild periorbital ecchymosis. Neck: Cervicothoracic orthosis in place and fitting properly. Neuro: Speech is clear. CN II-XII intact. Strength 5/5 throughout. Sensation intact throughout. Extremities: Radial and pedal pulses 2+ and equal bilaterally. ] Assessment: [72 year old female with unstable C6 fracture, DISH, nasal fracture. Stable post -operatively, C2-T2 posterior instrumentation. KILN FURNITURE SAW TENDER in place.] Plan: [1. Discharge to [facility] today. 2. Dressing changes daily. 3. Follow up with Dr. Allen in one week.]
--- NOTE | 2018-03-11 13:56 | PN ---
Subjective Date of Service: 03/11/18 Interval History: Ms. Johnson denies complaint. She is eager for transfer down to [facility] to continue rehab. Family History: Unchanged from Admission Social History: Unchanged from Admission Past Medical History: Unchanged from Admission Objective Active Medications: Acetaminophen (Tylenol Tab*) 650 mg PO Q4H PRN Amlodipine Besylate (Norvasc Tab*) 10 mg PO DAILY [facility] Atenolol (Tenormin Tab*) 25 mg PO DAILY [facility] Cholecalciferol (Vitamin D Tab*) 800 unit PO DAILY [facility] Heparin Sodium (Porcine) (Heparin Vial(*)) 5,000 units SUBCUT Q8HR [facility] Hydralazine HCl (Apresoline Iv*) 5 mg IV SLOW PU Q4HR PRN Hydromorphone HCl (Dilaudid Inj*) 1 mg IV SLOW PU Q4H PRN Hydromorphone HCl (Dilaudid Inj*) 0.5 mg IV SLOW PU Q4H PRN Lactated Ringer's (Lactated Ringers 1000 Ml Bag*) 1,000 mls @ 100 mls/hr IV PER RATE [facility] Morphine Sulfate (Morphine Vial*) 2 mg IV Q4H PRN Omeprazole (Prilosec Cap*) 20 mg PO 0600 [facility] Ondansetron HCl (Zofran 40 Mg Vial*) 4 mg IV Q6H PRN Oxycodone/Acetaminophen (Percocet 5/325 Tab*) 1 tab PO Q4H PRN Tramadol HCl (Ultram*) 50 mg PO Q6H PRN Vital Signs: Temp Pulse Resp BP Pulse Ox 98.0 F 59 17 142/79 99 03/11/18 11:38 03/11/18 11:38 03/11/18 11:38 03/11/18 11:38 03/11/18 11:38 Oxygen Devices in Use Now: None Appearance: Female sitting up in chair in NAD Respiratory: Symmetrical Chest Expansion and Respiratory Effort, Clear to Auscultation Cardiovascular: NL Sounds; No Murmurs; No JVD, No Edema Abdominal: NL Sounds; No Tenderness; No Distention Lymphatic: No Cervical Adenopathy Extremities: No Edema Skin: No Rash or Ulcers Neurological: Alert and Oriented x 3, NL Muscle Strength and Tone Nutrition: Taking PO's Result Diagrams: 03/11/18 05:15 03/11/18 05:15 Microbiology and Other Data: . Assess/Plan/Problems-Billing Assessment: Ms. Johnson is a 72 yo female with PMH of diffuse idiopathic skeletal hyperostosis and unspecificied autoimmune disorder who was admitted on03/05/18 with C6 cervical fracture after mechanical fall with plans for operative intervention on 03/07/18. Operation completed 03/07/18, when to ICU post op extubated 03/08/2018. - Patient Problems (1) Cervical spine fracture Comment: - s/p operative repair of C6 fx, posterior cervical arthrodesis and instrumentation with DBM putty from C2 to T2 with C2 pars screws, C3, C4, C5, C6 lateral mass screws and T1 and T2 pedicle screws. - Cervicothoracic orthosis in place. - Pain meds prn. (2) Dysphagia Comment: - Had esophgeal swallow study today- WNL, no pooling,aspiration, trauma - Speech therapy evaluated started thin liquids and purred diet- must be sitting in the chair while eating (3) Tachycardia Comment: - Patient reports problems with her heart rate since a bout of pericarditis. - Continue home atenolol. (4) Pulmonary nodule Comment: - Follow up outpatient. (5) DVT prophylaxis Comment: - SCDs. - Heparin sub Q (6) Full code status Comment: Status and Disposition: Inpatient. Discharge to [facility].
--- NOTE | 2018-03-12 09:49 | DS ---
CC: Dr. Clark* [facility] MEDICINE DISCHARGE SUMMARY: DATE OF ADMISSION: 03/05/18 DATE OF DISCHARGE TO [facility]: 03/11/18 PRIMARY CARE PHYSICIAN: Dr. Clark. ATTENDING PHYSICIAN: Dr. Kacie mSith * (dictation provided by Tamra Mock NP ). PRIMARY DIAGNOSIS: Unstable C6 cervical fracture, status post C2 to T2 instrumentation and arthrodesis. SECONDARY DIAGNOSES: 1. History of pericarditis. 2. History of diffuse idiopathic skeletal hyperostosis (DISH). 3. Autoimmune disorder. PAST SURGICAL HISTORY: 1. Status post exploratory laparotomy, status post lysis of adhesions. 2. Status post knee surgery. 3. Status post tonsillectomy. MEDICATIONS AT THE TIME OF DISCHARGE: 1. Tylenol p.r.n. 2. Amlodipine 10 mg p.o. daily. 3. Atenolol 25 mg p.o. daily. 4. Cholecalciferol 800 units p.o. daily. 5. Colace 100 mg p.o. b.i.d. 6. Heparin subcu 5000 units q.8 hours. 7. Hydrocodone with acetaminophen 7.25/325, 10 mL p.o. q.6 hours p.r.n. 8. Magnesium hydroxide 30 mL p.o. q.6 hours p.r.n. 9. Omeprazole 20 mg p.o. daily. 10. Senna p.r.n. 11. Tramadol p.r.n. HOSPITAL COURSE: Ms. Johnson is a 72-year-old female with a past medical history of DISH, who presented to the hospital on 03/05/18 after slipping and falling when getting out of the shower. Please see the dictated H and P from Preeti Reyes NP for complete details. In brief, the patient had a mechanical fall resulting in hitting her head with pain to her neck. In the emergency room, she had a C-spine CT showing a "3-column fracture through C6 without subluxation. There is continuous fusion of the cervical spine from multiple bridging anterolateral marginal osteophytes suggestive of diffuse idiopathic skeletal hyperostosis." The remainder of her trauma workup included a brain CT, which showed the following "no acute intracranial pathology." A chest CT, which showed the following "low suspicion right-sided pulmonary parenchymal nodule suggests followup in 6 months to reassess no acute CT findings." Thoracic spine CT showed the following "as noted on the CT of the cervical spine, there is a fracture of C6. There is continuous flowing bridging anterolateral marginal osteophyte suggestive of diffuse idiopathic skeletal hyperostosis. There is moderate narrowing of the central canal at T10-T11." Maxillofacial CT showed "mildly comminuted fracture through the right nasal arch." Lumbar spine CT showed "osteopenia, severe narrowing of the central canal at L3-L4 with moderate narrowing L4-L5 and T11-T12, and mild narrowing at T12-L1 and L1-L2. No acute osseous injury to the lumbar spine." The patient went on for a cervical spine MRI, which showed "again noted a fracture paralleling with severe endplate of C6. The distraction noted on the previous CT examination has reduced. There is disruption of the posterior longitudinal ligament at this level. The ligamentum flavum is intact. There is mild edema of the interspinous ligament at this level. There is no cord edema. There are no epidural fluid collection." The patient's labs were unremarkable. Her vitals were unremarkable. Ms. Johnson was admitted to the hospital. She was seen in consultation by Dr. Allen from neurosurgical services. He recommended that the patient go for operative intervention due to the unstable cervical spine fracture. Preoperative evaluation included a transthoracic echocardiogram, which was completed on 03/06/18 and showed "there is normal left ventricular systolic function, estimated ejection fraction of 55% to 60%, abnormal left ventricular diastolic filling is observed consistent with impaired relaxation. The right atrium is moderately dilated. Functionally benign heart valves." It was felt that no further cardiac workup was indicated. The patient went to the OR on 03/07/18 and had a "posterior cervical arthrodesis and instrumentation with DBM putty from C2 to T2 with C2 pars screws, C3, C4, C5, C6 lateral mass screws, and T1 and T2 pedicle screws." In the postoperative period, she was observed in the intensive care unit and remained intubated. She was seen in consultation by the laundrette owner at that point. The patient was extubated the following morning without incident. In addition to the cervical spine injury, the patient did complain of some dysphagia and in early part of this hospitalization, she went in for a fluoroscopic swallow on 03/09/18 that showed "status post cervical spine fracture and spinal fusion. There is no appreciable extravagation of contrast to suggest penetrating pharyngeal mucosal injury." She was seen in consultation by the speech therapy team and they deemed her to be appropriate for thin liquids and pureed food while sitting upright and with that she has been tolerating oral intake well. Ms. Johnson has been doing well since surgery. She has been followed by neurosurgical services and now is in a cervicothoracic orthosis and is deemed appropriate for transfer to [facility]. The patient's blood pressure was elevated to the 170s initially during the hospitalization and she was started on amlodipine with improvement noted in her BP. DISPOSITION: To [facility]. DIET: Regular. ACTIVITY: As tolerated. FOLLOWUP PLANS: 1. Please follow up with Dr. Allen and his team at the time of discharge from [facility]. 2. Please follow up with Dr. Clark at the time of discharge from [facility]. TIME SPENT: Approximately 60 minutes were spent on the discharge of this patient, more than half time spent with the patient at the bedside reviewing the events leading up to the hospitalization and during this hospitalization performing the physical examination and reviewing the discharge plan. TAMRA MOCK NP [id number]/[facility] #: [id number] [facility]
== END 2018-03-11 13:40 | DRG 460 ==
LOC: ED 11:01 → SSU 16:49 → AA 03-07 15:09 → ICU 03-07 17:44 → SSU 03-09 05:23
PROVIDERS: ADMIT Internal Medicine; ATTEND Hospitalist
PROC: 0RG20K1 Fusion of 2 or more Cervical Vertebral Joints with Nonautologous Tissue Substitute, Posterior Approach, Posterior Column, Open Approach (ICD-10-PCS; principal; 2018-03-05)
PROC: 0RG60K1 Fusion of Thoracic Vertebral Joint with Nonautologous Tissue Substitute, Posterior Approach, Posterior Column, Open Approach (ICD-10-PCS; 2018-03-05)
PROC: 0RG40K1 Fusion of Cervicothoracic Vertebral Joint with Nonautologous Tissue Substitute, Posterior Approach, Posterior Column, Open Approach (ICD-10-PCS; 2018-03-05)
PROC: 8E0WXBF Computer Assisted Procedure of Trunk Region, With Fluoroscopy (ICD-10-PCS; 2018-03-05)
DX: S12.500A Unspecified displaced fracture of sixth cervical vertebra, initial encounter for closed fracture (principal); I31.9 Disease of pericardium, unspecified; S02.2XXA Fracture of nasal bones, initial encounter for closed fracture; M50.30 Other cervical disc degeneration, unspecified cervical region; S05.10XA Contusion of eyeball and orbital tissues, unspecified eye, initial encounter; L50.9 Urticaria, unspecified; G89.29 Other chronic pain; R04.0 Epistaxis; R91.8 Other nonspecific abnormal finding of lung field; I10 Essential (primary) hypertension; R13.10 Dysphagia, unspecified; D89.89 Other specified disorders involving the immune mechanism, not elsewhere classified; R00.0 Tachycardia, unspecified; W01.0XXA Fall on same level from slipping, tripping and stumbling without subsequent striking against object, initial encounter; M48.12 Ankylosing hyperostosis [Forestier], cervical region; M85.88 Other specified disorders of bone density and structure, other site; M25.78 Osteophyte, vertebrae; Z72.89 Other problems related to lifestyle; Z80.42 Family history of malignant neoplasm of prostate; Y92.091 Bathroom in other non-institutional residence as the place of occurrence of the external cause; Z79.01 Long term (current) use of anticoagulants
CPT/HCPCS: 36415; 36600; 70450; 70486; 71045; 71260; 72040; 72125; 72128; 72131; 72141; 74220; 76001; 80048; 80053; 81003; 81015; 82803; 85025; 85027; 85610; 85730; 86850; 86900; 86901; 87086; 93005; 93306; 94002; 94003; 99283; A9270-GY; C1713; C1776; C8929; G8978-GP-CL; G8979-GP-CI; J0330; J0360; J0690; J1100; J1170; J1240; J1644; J2001; J2060; J2250; J2270; J2405; J2704; J3010; J3490; Q9967

== ENCOUNTER 2018-03-11 10:42 | Inpatient (IN) | payer MEDICARE, BC ==
[2018-03-11] MEDS ORDERED: Magnesium Hydroxide LIQ* 30 ML UDC PO PRN (14:13)
[2018-03-11] MEDS: Acetaminophen TAB* 325 MG PO PRN (14:48)
[2018-03-11] MEDS: Docusate CAP* 100 MG PO SCH (19:32)
[2018-03-11] MEDS: HYDROcodone/ACET. 7.5/325 LIQ* 15 ML UDC PO PRN (21:25)
[2018-03-11] MEDS: Heparin VIAL(*) 5000 UNITS/ML VIAL (FIVE THOUSAND) SUBCUT SCH (21:29)
--- NOTE | 2018-03-11 23:02 | HP ---
ADMISSION HISTORY AND PHYSICAL: DATE OF ADMISSION: 03/11/18 REASON FOR ADMISSION: C6 fracture, status post C2 through T2 fusion. HISTORY OF PRESENT ILLNESS AND HOSPITAL COURSE: Azul Johnson is a 72-year-old female. She has a history significant for diffuse idiopathic skeletal hyperostosis. She also has a history of hypertension and has had pericarditis in the past. The patient was getting out of the shower on 03/04/18. She slipped on a wet floor and fell and hit the back of her neck. She felt that something was wrong with her neck and that her neck was crunching when moving it. She felt prior to falling that she might have had carpal tunnel syndrome. She decided to stay home and in the house because her neck did not feel right. By the next day, her had convinced her to go to the emergency room. She had a CAT scan of the cervical spine showing a 3-column fracture through C6. She also had a maxillofacial CT showing she had broken her nose and had a mild comminuted fracture of the right nasal arch. She injured her left wrist during the fall as well. She had a CT scan of her brain and one of her lumbar spine. The patient was admitted and seen by Neurosurgery consult. Dr. Allen saw the patient and he felt that the patient would need to be stabilized. She was neurologically intact; but based on her imaging, surgical intervention for stabilization was needed. She was put in a [place] J collar. The patient was taken to the operating room on 03/07/18 and underwent a posterior cervical arthrodesis with instrumentation and DBM Putty from C2 to T2 with C2 pars screws, C3, 4, 5, and 6 lateral mass screws and T1 and 2 pedicle screws. She was put in a [place] JTO brace after surgery. She was monitored in the intensive care unit. She remained intubated in the intensive care unit after surgery. She was extubated on 03/08/18. She had a Gastrografin study to make sure she was capable of eating. She was put on a pureed diet because of difficulties with swallowing. She was on a thin liquid and pureed diet and was advised to sit up while eating. The patient was felt to be medically stable. She was on heparin subcutaneously for DVT prophylaxis. She had physical therapy and occupational therapy needs. She is now being admitted for inpatient rehab so that she might return to independent living. PAST MEDICAL HISTORY: Significant for the aforementioned DISH. She also has a history as mentioned of pericarditis and normally takes a beta-marley for that. CURRENT MEDICATIONS: Include: 1. Norvasc. 2. Tenormin. 3. Heparin for DVT prophylaxis. 4. Prilosec. 5. Senokot. 6. Ultram. ALLERGIES: No known drug allergies. SOCIAL HISTORY: She is a nonsmoker, nondrinker. Lives with her in a 2 - story farmhouse. There is a small bathroom on the first floor. REVIEW OF SYSTEMS: The patient reports no current shortness of breath or chest pain. PHYSICAL EXAMINATION VITAL SIGNS: The patient's temperature is 98.0, blood pressure is 144/58, pulse 62, respirations 16. HEENT: Extraocular movements are intact. NECK: Her neck is immobilized in a [place] J collar. LUNGS: Sound clear to auscultation bilaterally. HEART: Heart sounds are regular. S1 and S2 audible. ABDOMEN: Soft and nontender. EXTREMITIES: Her extremities showed normal muscle bulk and tone. Peripheral pulses were intact. She did have some bruising over her left wrist. NEUROLOGIC: She is awake, alert, and oriented. She was able to move all 4 extremities with at least 4+/5 strength. FUNCTIONAL EXAM: She transfers with max assist. ASSESSMENT: Three-column fracture of C6, status post cervical fusion. PLAN: Integrate her into a comprehensive and therapeutic rehab program. We will have the following goals: 1. Physical Therapy will see with the patient. They are going to work on functional transfer training, ambulation training with a walker. 2. Occupational Therapy will see the patient, work on her activities of daily living including toileting and toilet transfers. 3. Heparin for DVT prophylaxis. 4. Adequate analgesia. 5. We will continue a pureed diet for now. We will have Speech Therapy see her to see if her diet can be advanced. 6. Her bowels will be regulated. 7. She has a Thompson catheter. We will do Thompson clamping and remove Thompson in the next 3 to 4 days. 8. Advance directives: The patient is a full code. 9. Oil Tank Car Cleaner will be closely involved to make sure that any services and equipment the patient requires are in place prior to discharge. 10. Home with appropriate services. ESTIMATED LENGTH OF STAY: Two and a half weeks. [id number]/[facility] #: [id number] [facility]
[2018-03-12] MEDS: Heparin VIAL(*) 5000 UNITS/ML VIAL (FIVE THOUSAND) SUBCUT SCH ×3 (05:23→21:03)
[2018-03-12] MEDS: Omeprazole CAP* 20 MG PO SCH (05:25)
[2018-03-12 05:46] LABS: ABS Basophils 0 10^3/ul (0-0.2); ABS Eosinophils 0.2 10^3/ul (0-0.6); ABS Lymphocytes 2.4 10^3/ul (1.0-4.8); ABS Neutrophils 4.5 10^3/ul (1.5-7.7); ABS Nucleated RBC 0 10^3/ul; Eosinophil % 2.2 % (0-6); Hematocrit 36 % (35-47); Hemoglobin 12.3 g/dl (12.0-16.0); Lymphocyte % 29.6 % (25-47); Mean Corpuscular HGB Conc 34 g/dl (31-36); Mean Corpuscular Hemoglobin 34 pg (27-31); Mean Corpuscular Volume 99 fL (80-97); Mean Platelet Volume 7.9 um3 (7.4-10.4); Nucleated Red Blood Cells % 0; Platelet Count 268 10^3/ul (150-450); Red Blood Count 3.64 10^6/ul (4.0-5.4); Red Cell Distribution Width 12 % (10.5-15); White Blood Count 8.1 10^3/ul (3.5-10.8)
[2018-03-12 06:01] LABS: EGFR Non-African American 91.2 (>60)
[2018-03-12] MEDS: amLODIPine TAB* 5 MG PO SCH (08:23)
[2018-03-12] MEDS: Cholecalciferol TAB* 400 UNIT PO SCH (08:23)
[2018-03-12] MEDS: Atenolol TAB* 25 MG PO SCH (08:23)
[2018-03-12] MEDS: Acetaminophen TAB* 325 MG PO PRN (08:24)
[2018-03-12] MEDS: Docusate CAP* 100 MG PO SCH ×2 (08:36→19:25)
--- NOTE | 2018-03-12 19:14 | PN ---
Progress Note Date of Service: 03/12/18 Note: JOSH DESIR was visited. Therapy notes read and reviewed. She feels like she had a good first day. Her diet was unable to be advanced likely due to immobilization. Current Medications: Active Medications Generic Name Dose Route Start Last Admin Trade Name Freq PRN Reason Stop Dose Admin Acetaminophen 650 mg 03/11/18 14:13 03/12/18 08:24 Tylenol Tab* PO 650 mg Q6H PRN Administration FEVER/PAIN Hydrocodone Bitart/Acetaminophen 10 ml 03/11/18 16:45 03/11/18 21:25 Nortab 7.5/325 Liq* PO 10 ml Q6H PRN Administration PAIN - SEVERE Amlodipine Besylate 10 mg 03/12/18 09:00 03/12/18 08:23 Norvasc Tab* PO 10 mg DAILY DEEJAY Administration Atenolol 25 mg 03/12/18 09:00 03/12/18 08:23 Tenormin Tab* PO 25 mg DAILY DEEJAY Administration Cholecalciferol 800 unit 03/12/18 09:00 03/12/18 08:23 Vitamin D Tab* PO 800 unit DAILY DEEJAY Administration Docusate Sodium 100 mg 03/11/18 21:00 03/12/18 08:36 Colace Cap* PO Not Given BID DEEJAY Heparin Sodium (Porcine) 5,000 units 03/11/18 22:00 03/12/18 13:29 Heparin Vial(*) SUBCUT 5,000 units Q8HR DEEJAY Administration Heparin Sodium (Porcine) 1 ml 03/11/18 18:00 03/12/18 17:42 Heparin Flush Picc/Ml/Cvc(*) FLUSH 1 ml 0600,1800 DEEJAY Administration Protocol Magnesium Hydroxide 30 ml 03/11/18 14:13 Milk Of Magnesia Liq* PO Q6H PRN CONSTIPATION Omeprazole 20 mg 03/12/18 06:00 03/12/18 05:25 Prilosec Cap* PO 20 mg 0600 DEEJAY Administration Senna 2 tab 03/11/18 14:13 Senokot Tab* PO BEDTIME PRN CONSTIPATION Tramadol HCl 50 mg 03/11/18 14:22 Ultram* PO Q6H PRN PAIN - MODERATE Vital Signs: Vital Signs Temp Pulse Resp BP Pulse Ox 98.2 F 57 24 119/51 96 03/12/18 15:48 03/12/18 15:48 03/12/18 15:48 03/12/18 15:48 03/12/18 16:48 Lab Results: Laboratory Results - last 24 hr 03/12/18 03/12/18 05:35 05:35 WBC 8.1 RBC 3.64 L Hgb 12.3 Hct 36 MCV 99 H MCH 34 H MCHC 34 RDW 12 Plt Count 268 MPV 7.9 Neut % (Auto) 55.9 Lymph % (Auto) 29.6 Rich % (Auto) 11.8 H Eos % (Auto) 2.2 Baso % (Auto) 0.5 Absolute Neuts (auto) 4.5 Absolute Lymphs (auto) 2.4 Absolute Monos (auto) 1.0 H Absolute Eos (auto) 0.2 Absolute Basos (auto) 0 Absolute Nucleated RBC 0 Nucleated RBC % 0 Sodium 139 Potassium 3.3 L Chloride 102 Carbon Dioxide 32 Anion Gap 5 BUN 14 Creatinine 0.64 Est GFR ( Amer) 117.3 Est GFR (Non-Af Amer) 91.2 BUN/Creatinine Ratio 21.9 H Glucose 107 H Calcium 8.9 Total Bilirubin 0.50 AST 17 ALT 16 Alkaline Phosphatase 43 Total Protein 6.0 L Albumin 3.1 L Globulin 2.9 Albumin/Globulin Ratio 1.1 Exam: NECK: Immobilized in [facility] LUNGS: Clear HEART: reg rhythm ABDOMEN: Soft EXTREMITIES: Normal tone NEUROLOGIC: Moves all 4 extremities. Exam non focal Assessment/Plan: 1. C 6 three column fracture, S/P fusion, C2-T2: [facility] AAT. PT/OT/ 2. Dysphagia: Likely secondary to cervical immobilization. Pureed diet 3. Hypokalemia: Replenish potassium 4. Analgesia: Liquid hydrocodone 5. DVT Prophylaxis: Heparin S/Q 6. Advanced Directives: Full Code 7. DISH: Holding NSAIDs for now 03/12/18 19:15
[2018-03-12] MEDS: HYDROcodone/ACET. 7.5/325 LIQ* 15 ML UDC PO PRN (21:00)
[2018-03-13] MEDS: Heparin VIAL(*) 5000 UNITS/ML VIAL (FIVE THOUSAND) SUBCUT SCH ×3 (05:04→20:49)
[2018-03-13] MEDS: Omeprazole CAP* 20 MG PO SCH (05:05)
[2018-03-13] MEDS: Potassium Chloride LIQUID* 20 MEQ PACKET PO SCH (08:36)
[2018-03-13] MEDS: amLODIPine TAB* 5 MG PO SCH (08:37)
[2018-03-13] MEDS: traMADol TAB* 50 MG PO PRN ×3 (08:37→20:48)
[2018-03-13] MEDS: Atenolol TAB* 25 MG PO SCH (08:37)
[2018-03-13] MEDS: Cholecalciferol TAB* 400 UNIT PO SCH (08:37)
[2018-03-13] MEDS: Docusate CAP* 100 MG PO SCH ×2 (08:37→20:49)
--- NOTE | 2018-03-13 19:56 | PN ---
Progress Note Date of Service: 03/13/18 Note: JOSH DESIR was visited. Therapy notes read and reviewed. Case discussed with Dr. Allen. She can take brace off with therapy for clothing and to clean, she may shower. She feels good. Current Medications: Active Medications Generic Name Dose Route Start Last Admin Trade Name Freq PRN Reason Stop Dose Admin Acetaminophen 650 mg 03/11/18 14:13 03/12/18 08:24 Tylenol Tab* PO 650 mg Q6H PRN Administration FEVER/PAIN Hydrocodone Bitart/Acetaminophen 10 ml 03/11/18 16:45 03/12/18 21:00 Nortab 7.5/325 Liq* PO 10 ml Q6H PRN Administration PAIN - SEVERE Amlodipine Besylate 10 mg 03/12/18 09:00 03/13/18 08:37 Norvasc Tab* PO 10 mg DAILY DEEJAY Administration Atenolol 25 mg 03/12/18 09:00 03/13/18 08:37 Tenormin Tab* PO 25 mg DAILY DEEJAY Administration Cholecalciferol 800 unit 03/12/18 09:00 03/13/18 08:37 Vitamin D Tab* PO 800 unit DAILY DEEJAY Administration Docusate Sodium 100 mg 03/11/18 21:00 03/13/18 08:37 Colace Cap* PO Not Given BID DEEJAY Heparin Sodium (Porcine) 5,000 units 03/11/18 22:00 03/13/18 13:55 Heparin Vial(*) SUBCUT 5,000 units Q8HR DEEJAY Administration Heparin Sodium (Porcine) 1 ml 03/11/18 18:00 03/13/18 18:18 Heparin Flush Picc/Ml/Cvc(*) FLUSH 1 ml 0600,1800 DEEJAY Administration Protocol Magnesium Hydroxide 30 ml 03/11/18 14:13 Milk Of Magnesia Liq* PO Q6H PRN CONSTIPATION Omeprazole 20 mg 03/12/18 06:00 03/13/18 05:05 Prilosec Cap* PO 20 mg 0600 DEEJAY Administration Potassium Chloride 20 meq 03/13/18 09:00 03/13/18 08:36 Klor-Con Liquid* PO 20 meq DAILY DEEJAY Administration Senna 2 tab 03/11/18 14:13 Senokot Tab* PO BEDTIME PRN CONSTIPATION Tramadol HCl 50 mg 03/11/18 14:22 03/13/18 14:50 Ultram* PO 50 mg Q6H PRN Administration PAIN - MODERATE Vital Signs: Vital Signs Temp Pulse Resp BP Pulse Ox 98.1 F 54 18 131/61 97 03/13/18 15:41 03/13/18 15:41 03/13/18 16:46 03/13/18 15:41 03/13/18 15:41 Exam: NECK: Immobilized in [facility] LUNGS: Clear HEART: reg rhythm ABDOMEN: Soft EXTREMITIES: Normal tone NEUROLOGIC: Moves all 4 extremities. Exam non focal Assessment/Plan: 1. C 6 three column fracture, S/P fusion, C2-T2: [facility] AAT. PT/OT 2. Dysphagia: Likely secondary to cervical immobilization. 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 Hypokalemia: Replenish potassium 4. Analgesia: Liquid hydrocodone 5. DVT Prophylaxis: Heparin S/Q 6. Advanced Directives: Full Code 7. DISH: Holding NSAIDs for now 03/13/18 19:56
[2018-03-14] MEDS: Heparin VIAL(*) 5000 UNITS/ML VIAL (FIVE THOUSAND) SUBCUT SCH ×3 (05:26→21:28)
[2018-03-14] MEDS: Omeprazole CAP* 20 MG PO SCH (05:26)
[2018-03-14] MEDS: Potassium Chloride LIQUID* 20 MEQ PACKET PO SCH (08:09)
[2018-03-14] MEDS: Atenolol TAB* 25 MG PO SCH (08:10)
[2018-03-14] MEDS: Cholecalciferol TAB* 400 UNIT PO SCH (08:10)
[2018-03-14] MEDS: Docusate CAP* 100 MG PO SCH ×2 (08:10→20:13)
[2018-03-14] MEDS: amLODIPine TAB* 5 MG PO SCH (08:11)
[2018-03-14] MEDS: traMADol TAB* 50 MG PO PRN ×2 (08:11→14:10)
--- NOTE | 2018-03-14 12:41 | PMRUTEAM ---
PMRU: Team Meeting Current Status: Nursing: Current Status Skin Deviations [Left Wrist] Other Skin Deviations [Posterior Incision Neck] Skin Deviation Description [ drsg removed Left Wrist] Skin Deviation Description [ old drsg removed after showering. incision washed Posterior Neck] with soap and water. new telfa and 4x4's applied Physical Therapy: Current Status Bed Mobility Assistance Independent Transfer Moblility Assistance Supervision,Contact Guard Assist Transfer/Bed Mobility Rolling Walker Recommended Devices Ambulation Assistance Contact Guard Assist Ambulation Assistive Devices Rolling Walker Number of Feet Patient 2x150' Ambulated Occupational Therapy: Current Status Upper Body Dressing Total Assist Lower Body Dressing Max Asst Bathing Max Asst,Total Assist Toileting Max Asst Toilet Transfer Contact Guard Assist Eating Supervision Rec Therapy: Current Status Summary of Assessment and Pt. was with her son and open to conversation. Pt Clinical Impression . identified with many interests and active involvement in them prior to admission. Pt. was in good spirits and open to continued leisure visits. Treatment Goals Pt. will engage in leisure activities while on the unit. Treatment Plan Provide RT services and encourage involvement. Social Work: Current Status Discharge Plan return home with home care svs and family support Potential for Family Training pt's family are involved and supportive Anticipated Discharge Home Destination Discharge With home care svs and family support Speech: Current Status Assessment Patient is progressing as expected. Patient reported tolerating recommended pureed consistency of yogurt and thin liquids at breakfast with no complaints. Pt demonstrated understanding of and ability to perform recommended oropharyngeal swallow exercises and compensatory strategies. Plan: Swallowing therapy 3x/week with 3rd session today 03/14/18; continue pureed consistency and thin liquids as ordered; reassess and consider upgrade next week 03/18/18. Goals: Physical Therapy: Initial Goals Bed Mobility Assistance Independent Transfer Mobility Assistance Independent Transfer/Bed Mobility Rolling Walker Recommended Devices Ambulation Independent Ambulation Recommended Devices Rolling Walker Ambulation Distance 150 Stairs Assistance Independent Stair Recommended Devices Two Rails Number of Stairs 10 Physical Therapy: Updated Goals Transfer/Bed Mobility Rolling Walker Recommended Devices Occupational Therapy: Initial Goals Goals to be Completed in (Days 7-10 ) Upper Body Bathing Routine Minimal Contact Assist Lower Body Bathing Routine Minimal Contact Assist Upper Body Dressing Routine Moderate Assist Lower Body Dressing Routine Supervision/Set Up Toilet Hygeine and Clothing Modified Independent with Management Routine Toilet Transfer Routine Modified Independent with Step-In Shower Transfer Modified Independent with Routine Functional Transfers for ADL Modified Independent with Grooming Routine Independent Feeding Routine Independent Speech: Goals Speech Goal 1 Swallowing Goal 1 Comments Short Term Goals: 1) STG: Pt will tolerate pureed consistency and thin liquid w/ adequate PO hydration and nutritional intake, and no clinical s/s aspiration . Status: Pt progressing as expected. PROPERTY INSURANCE INSPECTOR provided education on swallowing mechanism, muscles, and provided skilled instruction for patient to perform recommended oropharyngeal swallow exercises and compensatory swallowing strategies. Patient peformed Christy manuever in 5/5 trials and QRCK words 10x each for tongue base retraction and strengthening given minimal cues. Pt performed Kale maneuver and Yawn-sigh for hyolaryngeal elevation and depression exercises in 5/5 trials with min cues to target airway protection and cricopharyngeal patency and closure . For trials of thin liquids, patient demonstrated 10/10 timely swallows with no clinical s/s aspiration. Patient I'ly used Supraglottic swallow technique. Patient expressed concerns with swallowing, and was hestitant to attempt puree trials, and prefers to continue swallow strengthening exercises this day. Social Work: Goals Discharge Plan return home with home care svs and family support Potential for Family Training pt's family are involved and supportive Anticipated Discharge Home Destination Discharge With home care svs and family support Care Plan: Care Plan DVT Prophylaxis- Improve/Maintain Start: 03/11/18 18:39 Freq: [email or web address] Status: Active Target: Protocol: Activity Type Activity Date Activity User E-Sign Co-Sign Detail Recorded Client Recorded Date Recorded By Document 03/14/18 11:25 [id number] [id number] 03/14/18 11:26 [id number] 03/14/18 11:25 PMRU Outcome: DVT Prophylaxis Outcome/Goals Remains Free of DVT Complies with DVT Prophylaxis /Treatment Demonstrates Knowledge of DVT Prevention/ Treatment Progression Toward Outcome/Goals Progressing Discharge Planning - Improve/Maintain Start: 03/11/18 18:39 Freq: [email or web address] Status: Active Target: Protocol: Activity Type Activity Date Activity User E-Sign Co-Sign Detail Recorded Client Recorded Date Recorded By Document 03/13/18 16:10 [id number] [id number] 03/13/18 16:10 [id number] 03/13/18 16:10 PMRU Outcome: Discharge Planning Update Patient Family Yes Outcome/Goals Demonstrates Understanding of Discharge Plan Homecare Referral - See Comment Progression Toward Outcome/Goals Progressing Education-Improve/Maintain Start: 03/11/18 18:39 Freq: [email or web address] Status: Active Target: Protocol: Activity Type Activity Date Activity User E-Sign Co-Sign Detail Recorded Client Recorded Date Recorded By Document 03/14/18 11:25 [id number] 03/14/18 11:26 [id number] 03/14/18 11:25 PMRU Outcome: Education Outcome/Goals Encourage Questions Progression Toward Outcome/Goals Progressing /GI-Improve/Maintain Start: 03/11/18 18:39 Freq: [email or web address]@1200 Status: Active Target: Protocol: Activity Type Activity Date Activity User E-Sign Co-Sign Detail Recorded Client Recorded Date Recorded By Document 03/14/18 11:25 [id number] 03/14/18 11:26 [id number] 03/14/18 11:25 PMRU Outcome: Genitourinary/ Gastrointestinal Genitourinary- Outcome/Goals Maintain/ Achieve Urinary Continence Maintain/ Achieve Adequate Urinary Output Gastrointestinal-Outcome/Goals Maintain/ Achieve Bowel Regularity in Accordance with Pt's Baseline Remain Free of Emesis Bowel Regularity at Home Other Outcome/Goals beltran clamping continues. Progression Toward Outcome/Goals - Progressing Progression Toward Outcome/Goals - GI Progressing Mobility- Improve/Maintain Start: 03/11/18 18:22 Freq: [email or web address]@1200 Status: Active Target: Protocol: Activity Type Activity Date Activity User E-Sign Co-Sign Detail Recorded Client Recorded Date Recorded By Document 03/13/18 16:00 [id number] 03/13/18 18:12 [id number] 03/13/18 16:00 PMRU Outcome: Mobility Physical Therapy Evaluation and Yes Treatment Activity OOB with Assistance Yes WBAT Yes Device Yes Assistance Yes Patient to be seen 5x/wk for 60-120 min/ Therex day for: Mobility Training Gait Training Balance Outcome/Goals Maintain/ Achieve Baseline Mobility Status Improve Mobility Status Demonstrates Proper Use of Assistive Devices Free from Complications of Immobility Progression Toward Outcome/Goals Progressing Bed Mobility Yes: independent Transfers Yes: independent with rolling walker Gait x ft Yes: independent with rolling walker 150' Up/Down Stairs Yes: independent up/ down 10 stairs with 2 rails. Nutrition/Swallowing- Improve/Maintain Start: 03/11/18 18:39 Freq: [email or web address]@1200 Status: Active Target: Protocol: Activity Type Activity Date Activity User E-Sign Co-Sign Detail Recorded Client Recorded Date Recorded By Document 03/14/18 00:47 [id number] 03/14/18 00:48 [id number] 03/14/18 00:47 PMRU Outcome: Nutrition/Swallowing Outcome/Goals Demonstrates Adequate Hydration/ Prevents Dehydration Maintain/ Improve Nutritional Status Progression Toward Outcome/Goals Progressing Pain/Comfort- Improve/Maintain Start: 03/11/18 18:39 Freq: DAILY@1200 Status: Active Target: Protocol: Activity Type Activity Date Activity User E-Sign Co-Sign Detail Recorded Client Recorded Date Recorded By Document 03/14/18 11:25 [id number] 03/14/18 11:26 [id number] 03/14/18 11:25 PMRU Outcome: Pain/Comfort Outcome/Goals Demonstrates Knowledge and Use of Available Comfort Measures Achieves Acceptable Comfort/Pain Level as Determined by Patient/Condit Maintain Comfort Level Allowing Patient to Fully Participate in Rehab Progression Toward Outcome/Goals Progressing Safety- Improve/Maintain Start: 03/11/18 18:39 Freq: DAILY@1200 Status: Active Target: Protocol: Activity Type Activity Date Activity User E-Sign Co-Sign Detail Recorded Client Recorded Date Recorded By Document 03/14/18 11:25 [id number] 03/14/18 11:26 [id number] 03/14/18 11:25 PMRU Outcome: Safety Outcome/Goals Remain Free of Injury or Harm Cooperates with Safety Measures for Least Restrictive Environment Prevent Falls/ Injury Progression Toward Outcome/Goals Progressing Skin- Improve/Maintain Start: 03/11/18 18:39 Freq: DAILY@1200 Status: Active Target: Protocol: Activity Type Activity Date Activity User E-Sign Co-Sign Detail Recorded Client Recorded Date Recorded By Document 03/14/18 11:25 [id number] 03/14/18 11:26 [id number] 03/14/18 11:25 PMRU Outcome: Skin Skin Risk Level Medium Dressing Change Comments dressing change this am Outcome/Goals Maintain/ Improve Skin Intergrity Progression Toward Outcome/Goals Progressing Medicine Note: Length of Stay: 6 days Anticipated Discharge Destination: Home Tentative Discharge Date: 03/20/18 Discharged to: Home
--- NOTE | 2018-03-14 15:21 | PN ---
Progress Note Date of Service: 03/14/18 Note: JOSH DESIR was visited. Therapy notes read and reviewed. Patient was discussed in interdisciplinary plan of care rounds. Moving ok. Beltran to be discontinued tomorrow. Having a hard time with toilet hygiene. Current Medications: Active Medications Generic Name Dose Route Start Last Admin Trade Name Freq PRN Reason Stop Dose Admin Acetaminophen 650 mg 03/11/18 14:13 03/12/18 08:24 Tylenol Tab* PO 650 mg Q6H PRN Administration FEVER/PAIN Hydrocodone Bitart/Acetaminophen 10 ml 03/11/18 16:45 03/12/18 21:00 Nortab 7.5/325 Liq* PO 10 ml Q6H PRN Administration PAIN - SEVERE Amlodipine Besylate 10 mg 03/12/18 09:00 03/14/18 08:11 Norvasc Tab* PO 10 mg DAILY DEEJAY Administration Atenolol 25 mg 03/12/18 09:00 03/14/18 08:10 Tenormin Tab* PO 25 mg DAILY DEEJAY Administration Cholecalciferol 800 unit 03/12/18 09:00 03/14/18 08:10 Vitamin D Tab* PO 800 unit DAILY DEEJAY Administration Docusate Sodium 100 mg 03/11/18 21:00 03/14/18 08:10 Colace Cap* PO Not Given BID DEEJAY Heparin Sodium (Porcine) 5,000 units 03/11/18 22:00 03/14/18 14:07 Heparin Vial(*) SUBCUT 5,000 units Q8HR DEEJAY Administration Heparin Sodium (Porcine) 1 ml 03/11/18 18:00 03/14/18 05:26 Heparin Flush Picc/Ml/Cvc(*) FLUSH 1 ml 0600,1800 DEEJAY Administration Protocol Magnesium Hydroxide 30 ml 03/11/18 14:13 Milk Of Magnesia Liq* PO Q6H PRN CONSTIPATION Omeprazole 20 mg 03/12/18 06:00 03/14/18 05:26 Prilosec Cap* PO 20 mg 0600 DEEJAY Administration Potassium Chloride 20 meq 03/13/18 09:00 03/14/18 08:09 Klor-Con Liquid* PO 20 meq DAILY DEEJAY Administration Senna 2 tab 03/11/18 14:13 Senokot Tab* PO BEDTIME PRN CONSTIPATION Tramadol HCl 50 mg 03/11/18 14:22 03/14/18 14:10 Ultram* PO 50 mg Q6H PRN Administration PAIN - MODERATE Vital Signs: Vital Signs Temp Pulse Resp BP Pulse Ox 98.5 F 57 16 146/57 95 03/14/18 05:19 03/14/18 05:19 03/14/18 14:10 03/14/18 05:19 03/14/18 05:19 Exam: NECK: Immobilized in [facility] LUNGS: Clear HEART: reg rhythm ABDOMEN: Soft EXTREMITIES: Normal tone NEUROLOGIC: Moves all 4 extremities. Exam non focal Assessment/Plan: 1. C 6 three column fracture, S/P fusion, C2-T2: [facility] AAT. PT/OT 2. Dysphagia: Likely secondary to cervical immobilization. 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 Hypokalemia: Replenish potassium 4. Analgesia: Liquid hydrocodone 5. DVT Prophylaxis: Heparin S/Q 6. Advanced Directives: Full Code 7. DISH: Holding NSAIDs for now 8. Genitourinary: Have been clamping beltran. D/C tomorrow 03/14/18 15:21
[2018-03-15] MEDS: Acetaminophen TAB* 325 MG PO PRN ×3 (00:40→20:43)
[2018-03-15] MEDS: Omeprazole CAP* 20 MG PO SCH (06:26)
[2018-03-15] MEDS: Heparin VIAL(*) 5000 UNITS/ML VIAL (FIVE THOUSAND) SUBCUT SCH ×3 (06:26→20:52)
[2018-03-15] MEDS: amLODIPine TAB* 5 MG PO SCH (09:15)
[2018-03-15] MEDS: Atenolol TAB* 25 MG PO SCH (09:15)
[2018-03-15] MEDS: Cholecalciferol TAB* 400 UNIT PO SCH (09:15)
[2018-03-15] MEDS: Docusate CAP* 100 MG PO SCH ×2 (09:16→20:46)
[2018-03-15] MEDS: Potassium Chloride LIQUID* 20 MEQ PACKET PO SCH (09:16)
--- NOTE | 2018-03-15 19:37 | PN ---
Progress Note Date of Service: 03/15/18 Note: JOSH DESIR was visited. Therapy notes read and reviewed. Pain is better controlled and she thinks she is doing better Current Medications: Active Medications Generic Name Dose Route Start Last Admin Trade Name Freq PRN Reason Stop Dose Admin Acetaminophen 650 mg 03/11/18 14:13 03/15/18 09:15 Tylenol Tab* PO 650 mg Q6H PRN Administration FEVER/PAIN Hydrocodone Bitart/Acetaminophen 10 ml 03/11/18 16:45 03/12/18 21:00 Nortab 7.5/325 Liq* PO 10 ml Q6H PRN Administration PAIN - SEVERE Amlodipine Besylate 10 mg 03/12/18 09:00 03/15/18 09:15 Norvasc Tab* PO 10 mg DAILY DEEJAY Administration Atenolol 25 mg 03/12/18 09:00 03/15/18 09:15 Tenormin Tab* PO 25 mg DAILY DEEJAY Administration Cholecalciferol 800 unit 03/12/18 09:00 03/15/18 09:15 Vitamin D Tab* PO 800 unit DAILY DEEJAY Administration Docusate Sodium 100 mg 03/11/18 21:00 03/15/18 09:16 Colace Cap* PO Not Given BID DEEJAY Heparin Sodium (Porcine) 5,000 units 03/11/18 22:00 03/15/18 14:16 Heparin Vial(*) SUBCUT 5,000 units Q8HR DEEJAY Administration Heparin Sodium (Porcine) 1 ml 03/11/18 18:00 03/15/18 18:04 Heparin Flush Picc/Ml/Cvc(*) FLUSH 1 ml 0600,1800 DEEJAY Administration Protocol Magnesium Hydroxide 30 ml 03/11/18 14:13 Milk Of Magnesia Liq* PO Q6H PRN CONSTIPATION Omeprazole 20 mg 03/12/18 06:00 03/15/18 06:26 Prilosec Cap* PO 20 mg 0600 DEEJAY Administration Potassium Chloride 20 meq 03/13/18 09:00 03/15/18 09:16 Klor-Con Liquid* PO 20 meq DAILY DEEJAY Administration Senna 2 tab 03/11/18 14:13 Senokot Tab* PO BEDTIME PRN CONSTIPATION Tramadol HCl 50 mg 03/11/18 14:22 03/14/18 14:10 Ultram* PO 50 mg Q6H PRN Administration PAIN - MODERATE Vital Signs: Vital Signs Temp Pulse Resp BP Pulse Ox 98.3 F 53 16 124/49 98 03/15/18 15:34 03/15/18 15:34 03/15/18 15:34 03/15/18 15:34 03/15/18 15:34 Exam: NECK: Immobilized in [facility] LUNGS: Clear HEART: reg rhythm ABDOMEN: Soft EXTREMITIES: Normal tone NEUROLOGIC: Moves all 4 extremities. Exam non focal Assessment/Plan: 1. C 6 three column fracture, S/P fusion, C2-T2: [facility] AAT. PT/OT 2. Dysphagia: Likely secondary to cervical immobilization. 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 Hypokalemia: Check potassium in am 4. Analgesia: Liquid hydrocodone 5. DVT Prophylaxis: Heparin S/Q 6. Advanced Directives: Full Code 7. DISH: Holding NSAIDs for now 8. Genitourinary: beltran out. Able to void 03/15/18 19:37
[2018-03-15] MEDS ORDERED: Simethicone TAB* 80 MG TAB.CHEW PO PRN (20:02)
[2018-03-15] MEDS: Senna TAB PO PRN (20:43)
[2018-03-16] MEDS: Heparin VIAL(*) 5000 UNITS/ML VIAL (FIVE THOUSAND) SUBCUT SCH ×3 (06:02→21:26)
[2018-03-16] MEDS: Omeprazole CAP* 20 MG PO SCH (06:03)
[2018-03-16 06:34] LABS: EGFR Non-African American 83.6 (>60)
[2018-03-16] MEDS: amLODIPine TAB* 5 MG PO SCH (08:29)
[2018-03-16] MEDS: Docusate CAP* 100 MG PO SCH ×2 (08:30→20:01)
[2018-03-16] MEDS: Atenolol TAB* 25 MG PO SCH (08:30)
[2018-03-16] MEDS: Potassium Chloride LIQUID* 20 MEQ PACKET PO SCH (08:30)
[2018-03-16] MEDS: Cholecalciferol TAB* 400 UNIT PO SCH (08:30)
[2018-03-16] MEDS: Acetaminophen TAB* 325 MG PO PRN ×2 (12:21→19:56)
[2018-03-16] MEDS: Senna TAB PO PRN (19:56)
[2018-03-17] MEDS: Heparin VIAL(*) 5000 UNITS/ML VIAL (FIVE THOUSAND) SUBCUT SCH ×3 (06:48→21:22)
[2018-03-17] MEDS: Omeprazole CAP* 20 MG PO SCH (06:48)
[2018-03-17] MEDS: amLODIPine TAB* 5 MG PO SCH (09:07)
[2018-03-17] MEDS: Acetaminophen TAB* 325 MG PO PRN ×2 (09:08→21:23)
[2018-03-17] MEDS: Cholecalciferol TAB* 400 UNIT PO SCH (09:08)
[2018-03-17] MEDS: Atenolol TAB* 25 MG PO SCH (09:08)
[2018-03-17] MEDS: Potassium Chloride LIQUID* 20 MEQ PACKET PO SCH (09:09)
[2018-03-17] MEDS: Docusate CAP* 100 MG PO SCH ×2 (09:10→21:24)
--- NOTE | 2018-03-17 15:46 | PN ---
Progress Note Date of Service: 03/17/18 Note: JOSH DESIR was visited. Nursing notes read and reviewed. She feels like she is doing well. No complaints today. Current Medications: Active Medications Generic Name Dose Route Start Last Admin Trade Name Freq PRN Reason Stop Dose Admin Acetaminophen 650 mg 03/11/18 14:13 03/17/18 09:08 Tylenol Tab* PO 325 mg Q6H PRN Administration FEVER/PAIN Hydrocodone Bitart/Acetaminophen 10 ml 03/11/18 16:45 03/12/18 21:00 Nortab 7.5/325 Liq* PO 10 ml Q6H PRN Administration PAIN - SEVERE Amlodipine Besylate 10 mg 03/12/18 09:00 03/17/18 09:07 Norvasc Tab* PO 10 mg DAILY DEEJAY Administration Atenolol 25 mg 03/12/18 09:00 03/17/18 09:08 Tenormin Tab* PO 25 mg DAILY DEEJAY Administration Cholecalciferol 800 unit 03/12/18 09:00 03/17/18 09:08 Vitamin D Tab* PO 800 unit DAILY DEEJAY Administration Docusate Sodium 100 mg 03/11/18 21:00 03/17/18 09:10 Colace Cap* PO Not Given BID DEEJAY Heparin Sodium (Porcine) 5,000 units 03/11/18 22:00 03/17/18 14:25 Heparin Vial(*) SUBCUT 5,000 units Q8HR DEEJAY Administration Heparin Sodium (Porcine) 1 ml 03/11/18 18:00 03/17/18 06:45 Heparin Flush Picc/Ml/Cvc(*) FLUSH 1 ml 0600,1800 DEEJAY Administration Protocol Magnesium Hydroxide 30 ml 03/11/18 14:13 Milk Of Magnesia Liq* PO Q6H PRN CONSTIPATION Omeprazole 20 mg 03/12/18 06:00 03/17/18 06:48 Prilosec Cap* PO 20 mg 0600 DEEJAY Administration Potassium Chloride 20 meq 03/13/18 09:00 03/17/18 09:09 Klor-Con Liquid* PO 20 meq DAILY DEEJAY Administration Senna 2 tab 03/11/18 14:13 03/16/18 19:56 Senokot Tab* PO 2 tab BEDTIME PRN Administration CONSTIPATION Simethicone 80 mg 03/15/18 20:02 03/15/18 20:43 Mylicon Tab* PO 80 mg Q6H PRN Administration DYSPEPSIA Tramadol HCl 50 mg 03/11/18 14:22 03/14/18 14:10 Ultram* PO 50 mg Q6H PRN Administration PAIN - MODERATE Vital Signs: Vital Signs Temp Pulse Resp BP Pulse Ox 97.8 F 65 18 126/43 98 03/17/18 06:48 03/17/18 06:48 03/17/18 06:48 03/17/18 06:48 03/17/18 06:48 Exam: NECK: Immobilized in [facility] LUNGS: Clear HEART: reg rhythm ABDOMEN: Soft EXTREMITIES: Normal tone NEUROLOGIC: Moves all 4 extremities. Exam non focal Assessment/Plan: 1. C 6 three column fracture, S/P fusion, C2-T2: [facility] AAT. PT/OT 2. Dysphagia: Likely secondary to cervical immobilization. 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 Hypokalemia: Check potassium in am 4. Analgesia: Liquid hydrocodone if needed 5. DVT Prophylaxis: Heparin S/Q 6. Advanced Directives: Full Code 7. DISH: Holding NSAIDs for now 8. Genitourinary: beltran out. Able to void 03/17/18 15:47
[2018-03-18] MEDS: Heparin VIAL(*) 5000 UNITS/ML VIAL (FIVE THOUSAND) SUBCUT SCH ×3 (05:52→21:51)
[2018-03-18] MEDS: Omeprazole CAP* 20 MG PO SCH (05:52)
[2018-03-18] MEDS: Potassium Chloride LIQUID* 20 MEQ PACKET PO SCH (08:50)
[2018-03-18] MEDS: Atenolol TAB* 25 MG PO SCH (08:51)
[2018-03-18] MEDS: amLODIPine TAB* 5 MG PO SCH (08:51)
[2018-03-18] MEDS: Acetaminophen TAB* 325 MG PO PRN ×3 (08:51→21:51)
[2018-03-18] MEDS: Cholecalciferol TAB* 400 UNIT PO SCH (08:51)
[2018-03-18] MEDS: Docusate CAP* 100 MG PO SCH ×2 (08:57→21:51)
--- NOTE | 2018-03-18 12:54 | PMRUTEAM ---
PMRU: Team Meeting Current Status: Nursing: Current Status Skin Deviations [Bilateral Other Buttocks] Skin Deviations [Right Knee] Bruise Skin Deviations [Left Eye] Bruise Skin Deviations [Left Wrist] Bruise Skin Deviations [Posterior Incision Neck] Skin Deviation Description [ redness, barrier applied Bilateral Buttocks] Skin Deviation Description [ healing Left Eye] Skin Deviation Description [ drsg removed Left Wrist] Skin Deviation Description [ intact with sutures. incision washed with soap and Posterior Neck] water. new telfa and 4x4 applied. Bladder Current Status voiding on toilet Bowel Current Status declined bowel meds this am. last bm 03/17/18 Nutrition Current Status appetite good Medication Current Status tylenol for pain Physical Therapy: Current Status Bed Mobility Assistance Not Tested Transfer Moblility Assistance Supervision Transfer/Bed Mobility Rolling Walker Recommended Devices Ambulation Assistance Supervision Ambulation Assistive Devices Rolling Walker Number of Feet Patient 150 Ambulated Stairs Assistance Supervision Stairs Recommended Devices One Rail Number of Stairs 2x10 Curb Contact Guard Assist Curb Assistive Devices Railings Objective Comments pt was fearful of ascend/descending stairs initially, but with repetition pt was able to perform step through pattern ascend/descending x3 stairs with bilateral rails and increased confidence Occupational Therapy: Current Status Upper Body Dressing Mod Assist Upper Body Dressing Progress trained/willing to assist Lower Body Dressing Min Assist Lower Body Dressing Progress trained/willing to assist Bathing Min Assist Bathing Progress trained/willing to assist Toileting Min Assist Toileting Progress needs assist for BM hygiene Toilet Transfer Supervision Shower Transfer Supervision Eating Independent Rec Therapy: Current Status Summary of Assessment and RT assessment complete and pt. is aware of RT Clinical Impression services. Pt. has been with family in the afternoons but very pleasant and engaged during leisure visits. Pt. identified with many interests and active involvement in them prior to admission. Treatment Goals Pt. will engage in leisure activities while on the unit. Treatment Plan Provide RT services and encourage involvement. Social Work: Current Status Discharge Plan return home with home care svs and family support Potential for Family Training pt's family are involved and supportive Anticipated Discharge Home Destination Discharge With home care svs and family support Nutrition: Current Status Monitoring full nutrition assessment planned today per NDS protocol. Spoke w/ROTARY VENEER MACHINE OPERATOR, who is today requesting a diet texture upgrade from pureed solids to [facility] soft solids; thin liquids and straws remain ok. Initial/tentative goals as outlined below. Speech: Current Status Assessment Patient is progressing as expected. Patient reported tolerating recommended pureed consistency of yogurt and thin liquids at breakfast with no complaints. Pt demonstrated understanding of and ability to perform recommended oropharyngeal swallow exercises and compensatory strategies. Plan: Swallowing therapy 3x/week with 3rd session today 03/14/18; continue pureed consistency and thin liquids as ordered; reassess and consider upgrade next week 03/18/18. Goals: Physical Therapy: Initial Goals Bed Mobility Assistance Independent Transfer Mobility Assistance Independent Transfer/Bed Mobility Rolling Walker Recommended Devices Ambulation Independent Ambulation Recommended Devices Rolling Walker Ambulation Distance 150 Stairs Assistance Independent Stair Recommended Devices Two Rails Number of Stairs 10 Physical Therapy: Updated Goals Transfer/Bed Mobility Rolling Walker Recommended Devices Occupational Therapy: Initial Goals Goals to be Completed in (Days 7-10 ) Upper Body Bathing Routine Minimal Contact Assist Lower Body Bathing Routine Minimal Contact Assist Upper Body Dressing Routine Moderate Assist Lower Body Dressing Routine Supervision/Set Up Toilet Hygeine and Clothing Modified Independent with Management Routine Toilet Transfer Routine Modified Independent with Step-In Shower Transfer Modified Independent with Routine Functional Transfers for ADL Modified Independent with Grooming Routine Independent Feeding Routine Independent Nursing: Goals Bladder Goal independent Bowel Goal independent Nutrition Goal 100% of all meals ate Medication Goal independent Nutrition: Goals Intervention Goals 1. adequate po intake to support lean body mass and hydration without add'l wt gain 2. pt will tolerate least-restrictive diet texture without difficulty chewing or swallowing 3. achieve and maintain regular bowel pattern without constipation or diarrhea 4. skin will remain intact without s/sx breakdown Speech: Goals Speech Goal 1 Swallowing Goal 1 Comments Short Term Goals: 1) STG: Pt will tolerate pureed consistency and thin liquid w/ adequate PO hydration and nutritional intake, and no clinical s/s aspiration . Status: Pt progressing as expected. ROTARY VENEER MACHINE OPERATOR provided education on swallowing mechanism, muscles, and provided skilled instruction for patient to perform recommended oropharyngeal swallow exercises and compensatory swallowing strategies. Patient peformed Christy manuever in 5/5 trials and QRCK words 10x each for tongue base retraction and strengthening given minimal cues. Pt performed Kale maneuver and Yawn-sigh for hyolaryngeal elevation and depression exercises in 5/5 trials with min cues to target airway protection and cricopharyngeal patency and closure . For trials of thin liquids, patient demonstrated 10/10 timely swallows with no clinical s/s aspiration. Patient I'ly used Supraglottic swallow technique. Patient expressed concerns with swallowing, and was hestitant to attempt puree trials, and prefers to continue swallow strengthening exercises this day. Social Work: Goals Discharge Plan return home with home care svs and family support Potential for Family Training pt's family are involved and supportive Anticipated Discharge Home Destination Discharge With home care svs and family support Care Plan: Care Plan ADL's - Improve/Maintain Start: 03/11/18 18:39 Freq: [email or web address]@1200 Status: Active Target: Protocol: Activity Type Activity Date Activity User E-Sign Co-Sign Detail Recorded Client Recorded Date Recorded By Document 03/14/18 14:37 [id number] [id number] 03/14/18 14:37 [id number] 03/14/18 14:37 PMRU Outcome: ADL's/ADL Transfers Orders/Interventions Occupational Therapy Evaluation & Treatment Device Yes Patient to receive OT 5x/wk for 60-120 Therex min/day Self Care Management Group Therapy UE/LE ADL's with Assist Yes: mod A ADL Transfers with Assist Yes: mod I Toileting: Transfers,Clothing Management Yes: mod I ,Hygeine w/Assist Progression Toward Outcome/Goals Progressing Outcome/Goals Met Pt making gains in independent use of AE and endurance for UB exercise. AROM of B shoulders is improving daily . DVT Prophylaxis- Improve/Maintain Start: 03/11/18 18:39 Freq: DAILY@1200 Status: Active Target: Protocol: Activity Type Activity Date Activity User E-Sign Co-Sign Detail Recorded Client Recorded Date Recorded By Document 03/18/18 11:16 [id number] [id number] 03/18/18 11:16 [id number] 03/18/18 11:16 PMRU Outcome: DVT Prophylaxis Outcome/Goals Remains Free of DVT Complies with DVT Prophylaxis /Treatment Demonstrates Knowledge of DVT Prevention/ Treatment Other Outcome/Goals eduardo wraps applied Progression Toward Outcome/Goals Progressing Outcome/Goals Met Complies with DVT Prophylaxis /Treatment Discharge Planning - Improve/Maintain Start: 03/11/18 18:39 Freq: DAILY@1200 Status: Active Target: Protocol: Activity Type Activity Date Activity User E-Sign Co-Sign Detail Recorded Client Recorded Date Recorded By Document 03/17/18 00:28 [id number] [id number] 03/17/18 00:28 [id number] 03/17/18 00:28 PMRU Outcome: Discharge Planning Update Patient Family Yes Outcome/Goals Demonstrates Understanding of Discharge Plan Homecare Referral - See Comment Progression Toward Outcome/Goals Progressing Education-Improve/Maintain Start: 03/11/18 18:39 Freq: DAILY@1200 Status: Active Target: Protocol: Activity Type Activity Date Activity User E-Sign Co-Sign Detail Recorded Client Recorded Date Recorded By Document 03/18/18 11:16 [id number] [email or web address] 03/18/18 11:16 [id number] 03/18/18 11:16 PMRU Outcome: Education Outcome/Goals Encourage Questions Progression Toward Outcome/Goals Progressing /GI-Improve/Maintain Start: 03/11/18 18:39 Freq: DAILY@1200 Status: Active Target: Protocol: Activity Type Activity Date Activity User E-Sign Co-Sign Detail Recorded Client Recorded Date Recorded By Document 03/18/18 11:16 [id number] [id number] 03/18/18 11:16 [id number] 03/18/18 11:16 PMRU Outcome: Genitourinary/ Gastrointestinal Genitourinary- Outcome/Goals Maintain/ Achieve Urinary Continence Maintain/ Achieve Adequate Urinary Output Gastrointestinal-Outcome/Goals Maintain/ Achieve Bowel Regularity in Accordance with Pt's Baseline Remain Free of Emesis Prevent Constipation Bowel Regularity at Home Bowel Program Progression Toward Outcome/Goals - Progressing Progression Toward Outcome/Goals - GI Progressing Outcome/Goals Met Comment pt up to BR with walker and gait belt. gait steady Mobility- Improve/Maintain Start: 03/11/18 18:22 Freq: DAILY@1200 Status: Active Target: Protocol: Activity Type Activity Date Activity User E-Sign Co-Sign Detail Recorded Client Recorded Date Recorded By Document 03/14/18 16:10 [id number] [email or web address] 03/14/18 16:10 [id number] 03/14/18 16:10 PMRU Outcome: Mobility Physical Therapy Evaluation and Yes Treatment Activity OOB with Assistance Yes WBAT Yes Device Yes Assistance Yes Patient to be seen 5x/wk for 60-120 min/ Therex day for: Mobility Training Gait Training Balance Outcome/Goals Maintain/ Achieve Baseline Mobility Status Improve Mobility Status Demonstrates Proper Use of Assistive Devices Free from Complications of Immobility Progression Toward Outcome/Goals Progressing Outcome/Goals Met Improve Mobility Status Demonstrates Proper Use of Assistive Devices Free from Complications of Immobility Bed Mobility Yes: independent Transfers Yes: independent with rolling walker Gait x ft Yes: independent with rolling walker 150' Up/Down Stairs Yes: independent up/ down 10 stairs with 2 rails. Nutrition/Swallowing- Improve/Maintain Start: 03/11/18 18:39 Freq: DAILY@1200 Status: Active Target: Protocol: Activity Type Activity Date Activity User E-Sign Co-Sign Detail Recorded Client Recorded Date Recorded By Document 03/17/18 00:27 [id number] 03/17/18 00:28 [id number] 03/17/18 00:27 PMRU Outcome: Nutrition/Swallowing Outcome/Goals Demonstrates Adequate Hydration/ Prevents Dehydration Maintain/ Improve Nutritional Status Progression Toward Outcome/Goals Progressing Pain/Comfort- Improve/Maintain Start: 03/11/18 18:39 Freq: DAILY@1200 Status: Active Target: Protocol: Activity Type Activity Date Activity User E-Sign Co-Sign Detail Recorded Client Recorded Date Recorded By Document 03/18/18 11:16 [id number] [email or web address] 03/18/18 11:16 [id number] 03/18/18 11:16 PMRU Outcome: Pain/Comfort Outcome/Goals Demonstrates Knowledge and Use of Available Comfort Measures Achieves Acceptable Comfort/Pain Level as Determined by Patient/Condit Maintain Comfort Level Allowing Patient to Fully Participate in Rehab Progression Toward Outcome/Goals Progressing Outcome/Goals Met Comment tylenol 325mg given per patient request Safety- Improve/Maintain Start: 03/11/18 18:39 Freq: DAILY@1200 Status: Active Target: Protocol: Activity Type Activity Date Activity User E-Sign Co-Sign Detail Recorded Client Recorded Date Recorded By Document 03/18/18 11:16 [id number] [email or web address] 03/18/18 11:16 [id number] 03/18/18 11:16 PMRU Outcome: Safety Outcome/Goals Remain Free of Injury or Harm Cooperates with Safety Measures for Least Restrictive Environment Prevent Falls/ Injury Progression Toward Outcome/Goals Progressing Outcome/Goals Met Cooperates with Safety Measures for Least Restrictive Environment Skin- Improve/Maintain Start: 03/11/18 18:39 Freq: DAILY@1200 Status: Active Target: Protocol: Activity Type Activity Date Activity User E-Sign Co-Sign Detail Recorded Client Recorded Date Recorded By Document 03/18/18 11:16 [id number] [email or web address] 03/18/18 11:16 [id number] 05/29/18 11:16 PMRU Outcome: Skin Skin Risk Level Medium Skin Orders Dressing Change Turn/Position q2hr While in Bed Outcome/Goals Maintain/ Improve Skin Intergrity Free from Decubitus Surgical Incisions Healing Progression Toward Outcome/Goals Progressing Medicine Note: Length of Stay: 2 days Anticipated Discharge Destination: Home Tentative Discharge Date: 03/20/18 Discharged to: home
--- NOTE | 2018-03-18 16:47 | PN ---
Progress Note Date of Service: 03/18/18 Note: JOSH DESIR was visited. Therapy notes read and reviewed. She was discussed in interdisciplinary team rounds. She has a small area of pain over her right knee. Her strength is normal. Current Medications: Active Medications Generic Name Dose Route Start Last Admin Trade Name Freq PRN Reason Stop Dose Admin Acetaminophen 650 mg 03/11/18 14:13 03/18/18 16:09 Tylenol Tab* PO 325 mg Q6H PRN Administration FEVER/PAIN Hydrocodone Bitart/Acetaminophen 10 ml 03/11/18 16:45 03/12/18 21:00 Nortab 7.5/325 Liq* PO 10 ml Q6H PRN Administration PAIN - SEVERE Amlodipine Besylate 10 mg 03/12/18 09:00 03/18/18 08:51 Norvasc Tab* PO 10 mg DAILY DEEJAY Administration Atenolol 25 mg 03/12/18 09:00 03/18/18 08:51 Tenormin Tab* PO 25 mg DAILY DEEJAY Administration Cholecalciferol 800 unit 03/12/18 09:00 03/18/18 08:51 Vitamin D Tab* PO 800 unit DAILY DEEJAY Administration Docusate Sodium 100 mg 03/11/18 21:00 03/18/18 08:57 Colace Cap* PO Not Given BID DEEJAY Heparin Sodium (Porcine) 5,000 units 03/11/18 22:00 03/18/18 14:54 Heparin Vial(*) SUBCUT 5,000 units Q8HR DEEJAY Administration Heparin Sodium (Porcine) 1 ml 03/11/18 18:00 03/18/18 05:52 Heparin Flush Picc/Ml/Cvc(*) FLUSH 1 ml 0600,1800 DEEJAY Administration Protocol Magnesium Hydroxide 30 ml 03/11/18 14:13 Milk Of Magnesia Liq* PO Q6H PRN CONSTIPATION Omeprazole 20 mg 03/12/18 06:00 03/18/18 05:52 Prilosec Cap* PO 20 mg 0600 DEEJAY Administration Senna 2 tab 03/11/18 14:13 03/16/18 19:56 Senokot Tab* PO 2 tab BEDTIME PRN Administration CONSTIPATION Simethicone 80 mg 03/15/18 20:02 03/15/18 20:43 Mylicon Tab* PO 80 mg Q6H PRN Administration DYSPEPSIA Tramadol HCl 50 mg 03/11/18 14:22 03/14/18 14:10 Ultram* PO 50 mg Q6H PRN Administration PAIN - MODERATE Vital Signs: Vital Signs Temp Pulse Resp BP Pulse Ox 97.9 F 57 18 119/55 98 03/18/18 15:28 03/18/18 15:28 03/18/18 15:28 03/18/18 15:28 03/18/18 15:28 Exam: NECK: Immobilized in [facility] LUNGS: Clear HEART: reg rhythm ABDOMEN: Soft EXTREMITIES: Normal tone. No swelling RLE. Mild faded bruising NEUROLOGIC: Moves all 4 extremities. Exam non focal Assessment/Plan: 1. C 6 three column fracture, S/P fusion, C2-T2: [facility] AAT. PT/OT 2. Dysphagia: Likely secondary to cervical immobilization. Upgrade diet to soft. 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 Hypokalemia: Check potassium in am 4. Analgesia: Liquid hydrocodone if needed 5. DVT Prophylaxis: Heparin S/Q 6. Advanced Directives: Full Code 7. DISH: Holding NSAIDs for now 8. Genitourinary: beltran out. Able to void 03/18/18 16:48
[2018-03-18] MEDS: Senna TAB PO PRN (21:51)
[2018-03-19] MEDS: Heparin VIAL(*) 5000 UNITS/ML VIAL (FIVE THOUSAND) SUBCUT SCH ×3 (04:28→21:38)
[2018-03-19] MEDS: Omeprazole CAP* 20 MG PO SCH (04:28)
[2018-03-19 05:24] LABS: ABS Basophils 0.1 10^3/ul (0-0.2); ABS Eosinophils 0.3 10^3/ul (0-0.6); ABS Neutrophils 5.8 10^3/ul (1.5-7.7); ABS Nucleated RBC 0 10^3/ul; Eosinophil % 2.9 % (0-6); Hematocrit 39 % (35-47); Hemoglobin 13.3 g/dl (12.0-16.0); Lymphocyte % 21.7 % (25-47); Mean Corpuscular HGB Conc 34 g/dl (31-36); Mean Corpuscular Hemoglobin 34 pg (27-31); Mean Corpuscular Volume 101 fL (80-97); Mean Platelet Volume 8.9 um3 (7.4-10.4); Nucleated Red Blood Cells % 0; Platelet Count 342 10^3/ul (150-450); Red Blood Count 3.89 10^6/ul (4.0-5.4); Red Cell Distribution Width 13 % (10.5-15); White Blood Count 9.1 10^3/ul (3.5-10.8)
[2018-03-19 05:42] LABS: EGFR Non-African American 77.1 (>60)
[2018-03-19] MEDS: Atenolol TAB* 25 MG PO SCH (07:24)
[2018-03-19] MEDS: amLODIPine TAB* 5 MG PO SCH (07:25)
[2018-03-19] MEDS: Cholecalciferol TAB* 400 UNIT PO SCH (07:25)
[2018-03-19] MEDS: Acetaminophen TAB* 325 MG PO PRN ×3 (07:25→21:37)
[2018-03-19] MEDS: Docusate CAP* 100 MG PO SCH ×2 (07:28→21:38)
--- NOTE | 2018-03-19 20:07 | PN ---
Progress Note Date of Service: 03/19/18 Note: JOSH DESIR was visited. Therapy notes read and reviewed. She is doing well and ready for discharge in the morning. Current Medications: Active Medications Generic Name Dose Route Start Last Admin Trade Name Freq PRN Reason Stop Dose Admin Acetaminophen 650 mg 03/11/18 14:13 03/19/18 14:27 Tylenol Tab* PO 325 mg Q6H PRN Administration FEVER/PAIN Hydrocodone Bitart/Acetaminophen 10 ml 03/11/18 16:45 03/12/18 21:00 Nortab 7.5/325 Liq* PO 10 ml Q6H PRN Administration PAIN - SEVERE Amlodipine Besylate 10 mg 03/12/18 09:00 03/19/18 07:25 Norvasc Tab* PO 10 mg DAILY DEEJAY Administration Atenolol 25 mg 03/12/18 09:00 03/19/18 07:24 Tenormin Tab* PO 25 mg DAILY DEEJAY Administration Cholecalciferol 800 unit 03/12/18 09:00 03/19/18 07:25 Vitamin D Tab* PO 800 unit DAILY DEEJAY Administration Docusate Sodium 100 mg 03/11/18 21:00 03/19/18 07:28 Colace Cap* PO Not Given BID DEEJAY Heparin Sodium (Porcine) 5,000 units 03/11/18 22:00 03/19/18 14:44 Heparin Vial(*) SUBCUT 5,000 units Q8HR DEEJAY Administration Heparin Sodium (Porcine) 1 ml 03/11/18 18:00 03/19/18 19:40 Heparin Flush Picc/Ml/Cvc(*) FLUSH Not Given 0600,1800 [facility] Protocol Magnesium Hydroxide 30 ml 03/11/18 14:13 Milk Of Magnesia Liq* PO Q6H PRN CONSTIPATION Omeprazole 20 mg 03/12/18 06:00 03/19/18 04:28 Prilosec Cap* PO 20 mg 0600 DEEJAY Administration Senna 2 tab 03/11/18 14:13 03/18/18 21:51 Senokot Tab* PO 2 tab BEDTIME PRN Administration CONSTIPATION Simethicone 80 mg 03/15/18 20:02 03/15/18 20:43 Mylicon Tab* PO 80 mg Q6H PRN Administration DYSPEPSIA Tramadol HCl 50 mg 03/11/18 14:22 03/14/18 14:10 Ultram* PO 50 mg Q6H PRN Administration PAIN - MODERATE Vital Signs: Vital Signs Temp Pulse Resp BP Pulse Ox 98.2 F 61 16 98/57 98 03/19/18 16:50 03/19/18 16:50 03/19/18 19:44 03/19/18 16:50 03/19/18 19:45 Lab Results: Laboratory Results - last 24 hr 03/19/18 03/19/18 04:40 04:40 WBC 9.1 RBC 3.89 L Hgb 13.3 Hct 39 MCV 101 H MCH 34 H MCHC 34 RDW 13 Plt Count 342 MPV 8.9 Neut % (Auto) 63.5 Lymph % (Auto) 21.7 L [place] % (Auto) 10.8 H Eos % (Auto) 2.9 Baso % (Auto) 1.1 Absolute Neuts (auto) 5.8 Absolute Lymphs (auto) 2.0 Absolute Monos (auto) 1.0 H Absolute Eos (auto) 0.3 Absolute Basos (auto) 0.1 Absolute Nucleated RBC 0 Nucleated RBC % 0 Sodium 137 L Potassium 4.0 Chloride 101 Carbon Dioxide 30 Anion Gap 6 BUN 11 Creatinine 0.74 Est GFR ( Amer) 99.2 Est GFR (Non-Af Amer) 77.1 BUN/Creatinine Ratio 14.9 Glucose 133 H Calcium 9.5 Total Bilirubin 0.50 AST 18 ALT 16 Alkaline Phosphatase 54 Total Protein 7.0 Albumin 3.6 Globulin 3.4 Albumin/Globulin Ratio 1.1 Exam: NECK: Immobilized in [facility] LUNGS: Clear HEART: reg rhythm ABDOMEN: Soft EXTREMITIES: Normal tone. No swelling RLE. Mild faded bruising NEUROLOGIC: Moves all 4 extremities. Exam non focal Assessment/Plan: 1. C 6 three column fracture, S/P fusion, C2-T2: [facility] AAT. PT/OT 2. Dysphagia: Likely secondary to cervical immobilization. Upgrade diet to soft. 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 Hypokalemia: Check potassium in am 4. Analgesia: Liquid hydrocodone if needed 5. DVT Prophylaxis: Heparin S/Q 6. Advanced Directives: Full Code 7. DISH: Holding NSAIDs for now 03/19/18 20:07
[2018-03-20] MEDS: Heparin VIAL(*) 5000 UNITS/ML VIAL (FIVE THOUSAND) SUBCUT SCH (06:15)
[2018-03-20] MEDS: Omeprazole CAP* 20 MG PO SCH (06:16)
[2018-03-20 09:18] VITALS: BP 124/55
[2018-03-20] MEDS: Atenolol TAB* 25 MG PO SCH (09:23)
[2018-03-20] MEDS: Cholecalciferol TAB* 400 UNIT PO SCH (09:23)
[2018-03-20] MEDS: amLODIPine TAB* 5 MG PO SCH (09:23)
[2018-03-20] MEDS: Acetaminophen TAB* 325 MG PO PRN (09:25)
[2018-03-20] MEDS: Docusate CAP* 100 MG PO SCH (09:27)
--- NOTE | 2018-03-21 20:06 | DS ---
CC: Dr. Mariann Clark * DISCHARGE SUMMARY: DATE OF ADMISSION: 03/11/18 DATE OF DISCHARGE: 03/20/18 DISCHARGE DIAGNOSES: 1. C6 three-column vertebral fracture. 2. Status post cervical fusion, C2 through T2. 3. Diffuse idiopathic skeletal hyperostosis. 4. Hypertension. 5. History of pericarditis. HISTORY OF ILLNESS AND HOSPITAL COURSE: For complete history of the events leading up to her rehab stay, please see the history and physical dictated by me on 03/11/2018. While on the rehab unit, the patient remained medically stable. Her Thompson catheter was clamped and removed and she was able to void without difficulty. Her wound healed well while on the rehab unit. She was able to take the collar off to shower with the therapist and get dressed. The patient received adequate analgesia with oral analgesics, but by the end of the rehab stay required only Tylenol. The patient did have trouble swallowing because of her cervical immobilization. Her diet was initially pureed, but working with the speech therapist, she was able to upgrade it to soft. The patient was otherwise medically stable. The patient was seen by Physical and Occupational Therapy and made good gains with both disciplines. With physical therapy at the time of admission, the patient required min assist of 2 people to do a transfer, min assist of 2 people in order for her to ambulate 40 feet. With occupational therapy at the time of admission, she required total assistance for lower body dressing, max assist for upper body dressing, total assistance for toileting, min assist for toilet transfers. By the time of discharge, the patient was total assistance for upper body dressing, total assist for shoes and socks, and required assistance for wiping after a bowel movement but not after voiding. With physical therapy at the time of discharge , the patient was independent transfers, independent ambulating, supervision going up and down a flight of stairs. The patient's came in for family training. The patient was discharged home on 03/20/2018. DISCHARGE DIET: Soft with thin liquids. DISCHARGE MEDICATIONS: 1. Norvasc 10 mg orally daily. 3. Tenormin 25 mg daily. 3. Vitamin D 800 units daily. 4. Prilosec 20 mg daily. SERVICES AFTER DISCHARGE: Through visiting nurse service, she will have home nursing, home physical therapy, and a home health aide as well as home occupational therapy. Follow up with Dr. Allen in 1 to 2 weeks. She will also follow up with Dr. Mariann Clark at [place]. [id number]/[facility] #: [id number] [facility]
== END 2018-03-20 11:10 | disposition home health service (06) | DRG 561 ==
LOC: PMRU 14:08
PROVIDERS: ADMIT Physical Medicine & Rehabilitation; ATTEND Physical Medicine & Rehabilitation
PROC: F07Z5ZZ Bed Mobility Treatment (ICD-10-PCS; principal; 2018-03-11)
PROC: F07Z9ZZ Gait Training/Functional Ambulation Treatment (ICD-10-PCS; 2018-03-11)
PROC: F07Z8ZZ Transfer Training Treatment (ICD-10-PCS; 2018-03-11)
PROC: F08Z0ZZ Bathing/Showering Techniques Treatment (ICD-10-PCS; 2018-03-11)
PROC: F08Z1ZZ Dressing Techniques Treatment (ICD-10-PCS; 2018-03-11)
PROC: F08Z3ZZ Feeding/Eating Treatment (ICD-10-PCS; 2018-03-11)
DX: S12.501D Unspecified nondisplaced fracture of sixth cervical vertebra, subsequent encounter for fracture with routine healing (principal); S02.2XXD Fracture of nasal bones, subsequent encounter for fracture with routine healing; S06.9X0D Unspecified intracranial injury without loss of consciousness, subsequent encounter; W01.0XXD Fall on same level from slipping, tripping and stumbling without subsequent striking against object, subsequent encounter; M48.10 Ankylosing hyperostosis [Forestier], site unspecified; R13.19 Other dysphagia; E87.6 Hypokalemia; I10 Essential (primary) hypertension; Z79.01 Long term (current) use of anticoagulants; Z79.899 Other long term (current) drug therapy; Z47.89 Encounter for other orthopedic aftercare
CPT/HCPCS: 36415; 80048; 80053; 85025; A9270-GY; J1644

== ENCOUNTER 2018-03-31 16:06 | Emergency (ER) | payer MEDICARE, BC ==
[2018-03-31 16:59] VITALS: BP 142/75
--- NOTE | 2018-03-31 18:30 | RAD ---
INDICATION: Status post surgery base of occiput status pop sound. COMPARISON: Comparison is made with a prior CT of the cervical spine from March 05, 2018 and a prior x-ray study of the cervical spine from March 11, 2018. TECHNIQUE: 3 views of the cervical spine were obtained including lateral, AP and open-mouth odontoid views. FINDINGS: Again note is made of a transverse fracture of the superior aspect of the C6 vertebral body with diastases of the fracture which appears unchanged from the prior studies. The patient is status post posterior spinal fusion C2-T2 with lateral mass screws at the C2-C6 levels and pedicle screws at the T1 and T2 levels. The surgical hardware appears intact. There are large bridging anterior osteophytes in the cervical spine. There is moderate diffuse degenerative disc disease. IMPRESSION: AGAIN NOTE IS MADE OF A FRACTURE OF C6 VERTEBRAL BODY WITH DIASTASES OF THE FRACTURE LINE UNCHANGED FROM THE PRIOR STUDIES. THE PATIENT IS STATUS POST POSTERIOR SPINAL FUSION C2 THROUGH T2. THE SURGICAL HARDWARE APPEARS INTACT.
--- NOTE | 2018-03-31 18:47 | UC ---
Keisha Tabares Tenzin, scribed for Eliza Costa MD on 03/31/18 at 1806 . Neck Pain HPI - HPI Summary HPI Summary: Pt is a 72 years old presenting to the complaining of left neck pain since today. She was doing some physical therapy with her nurse today when she heard a pop and pain on the left side of her neck. Pt rates the pain at 2/10 in severity and describes it as aching, sharp and quick pain. She denies any tingling or numbness sensation. Pt reports that the pain is aggravated by movement. Pt without pain when head neutral and forward facing. She has an immobilization collar on her neck from recent spine injury and fusion. She is sitting in her home wheeled walker chair device. . Pt notes that she took a 325 mg of Tylenol today. Patient states she recently had a spinal surgery on at [facility] [place] on C2-T3 vertebrae in her back with Dr. Wilburn. She was D/C from the hospital on 03/19. Pt states attempted x 2 to contact neurosurgery office without success. Home health aide recommended she come for eval Pt medications reviewed this visit - History of Current Complaint Chief Complaint: UCBackPain Stated Complaint: NECK INJURY Time Seen by Provider: 03/31/18 17:46 Hx Obtained From: Patient, Family/Manager Training, Medical Records, Other: - neurosurgery - Dr. Wilburn ?: No Onset/Duration: Sudden Onset - Today. Severity: Mild Pain Intensity: 2 Pain Scale Used: 0-10 Numeric Location: Discrete At: - back neck. Character: Aching Aggravating Factors: Movement Alleviating Factors: Nothing Associated Signs & Symptoms: Positive: Negative - Allergies/Home Medications Allergies/Adverse Reactions: Allergies Allergy/AdvReac Type Severity Reaction Status Date / Time No Known Allergies Allergy Verified 03/31/18 16:49 Home Medications: Home Medications Acetaminophen [Tylenol] 325 mg PO Q6HR PRN 03/31/18 [History Confirmed 03/31/18] PMH/Surg Hx/FS Hx/Imm Hx - Additional Past Medical History Additional PMH: POSITIVE: HTN osteoporosis NEGATIVE: [place] Previously Healthy: Yes Cardiovascular History: Hypertension - Surgical History Surgical History: Yes Surgery Procedure, Year, and Place: ABDOMINAL LAPROSCOPIC X 3; D&C; TONSILECTOMY ; KNEE SURGERY; CERVICAL CERCLAGE. C2-T3 vertebrae surgery on 02/2018 at [facility] [place] - Family History Known Family History: Positive: Other - PT DENIES ANY RELEVANT FAMILY HISTORY. - Social History Occupation: Retired Lives: With Family Alcohol Use: Rare Substance Use Type: None Smoking Status (MU): Never Smoked Tobacco - Immunization History Most Recent Influenza Vaccination: 2017 Most Recent Pneumonia Vaccination: 2009 Review Of Systems Constitutional: Positive: Negative Skin: Positive: Negative Eyes: Positive: Negative ENT: Positive: Other - BACK NECK PAIN. Respiratory: Positive: Negative Cardiovascular: Positive: Negative Gastrointestinal: Positive: Negative Genitourinary: Positive: Negative Musculoskeletal: Positive: Negative Neurological: Positive: Negative Psychological: Positive: Negative All Other Systems Reviewed And Are Negative: Yes Physical Exam - Summary Physical Exam Summary: Vital Signs Reviewed: Yes A+Ox3, no distress Eyes: Conjunctiva Clear ENT: Hearing grossly normal neck: cervical immobilization device Respiratory: Positive: No respiratory distress, No accessory muscle use +BS throughout no w/r Cardiovascular: skin color reflect adequate perfusion RR nl s1 s2 CBT < 2 sec b/ l radial Musculoskeletal Exam: + full AROM b/l LE without difficulty or pain pt point tenderness left occiput at base of skull no crepitys Neurological: Positive: Alert + gross sensation throughout b/l upper ext + thumb up, a ok finger spread, finger cross 2+ bicep no clonus Psychological: Positive: Normal Response To Family Skin: Positive: no rash, no ecchymosis Triage Information Reviewed: Yes Vital Signs: Initial Vital Signs Temp 98 F 03/31/18 16:51 Pulse 72 03/31/18 16:51 Resp 16 03/31/18 16:51 BP 142/75 03/31/18 16:51 Pulse Ox 97 03/31/18 16:51 Diagnostics - Radiology CERVICAL SPINE X RAY Radiology Interpretation Completed By: Radiologist - IMPRESSION: AGAIN NOTE IS MADE OF A FRACTURE OF C6 VERTEBRAL BODY WITH DIASTASES OF THE FRACTURE LINE UNCHANGED FROM THE PRIOR STUDIES. THE PATIENT IS STATUS POST POSTERIOR SPINAL FUSION C2 THROUGH T2. THE SURGICAL HARDWARE APPEARS INTACT. Re-Evaluation - Re-Evaluation First Eval Comment: reviewed images with pt. reviewed Dr. Akila munoz. Pt comfortable and in agreement with plan. will d/c home. dicussed increasing APAP dosing PRN Neck Pain Course/Dx - Differential Dx/Diagnosis Provider Diagnoses: neck pain - Physician Notification/Consults Discussed Patient Care With: Richie Wilburn Time Discussed With Above Provider: 18:53 - okay to discharge pt can call office tomorrow if wants to be seen or if any changes to sx otherwise okay for f/u next week was scheduled Discharge - Sign-Out/Discharge Documenting (check all that apply): Discharge/Admit/Transfer - Discharge Plan Condition: Stable Disposition: HOME Patient Education Materials: Neck Pain (ED) Referrals: Mariann Clark MD [Primary Care Provider] - Anh Allen MD [Medical Doctor] - Additional Instructions: - Continue care as previously prescribed by your neurosurgeon - Okay to take tylenol 650mg every 6 hours as needed for pain - Contact your neurosurgeon tomorrow as scheduled at 10am. After discussion, you can determine if you should be evaulated in the office - If you have extremity weakness, increased pain, or sensation changes do your arm it is recommended you contact your doctor or return with questions or concerns For your follow-up images ordered by your doctor - call the central scheduling office at [phone] to make an appointment - Billing Disposition and Condition Condition: STABLE Disposition: Home The documentation as recorded by the Keisha corrales Tenzin accurately reflects the service I personally performed and the decisions made by me, Eliza Costa MD.
== END 2018-03-31 19:05 | disposition home or self-care (01) ==
LOC: UCEAST 16:06
DX: M54.2 Cervicalgia (principal); I10 Essential (primary) hypertension
CPT/HCPCS: 72040; 99211; G0463